=== PATIENT | female | born 1950 | race Caucasian/White ===

== ENCOUNTER 2025-04-01 07:59 | Outpatient (AMB) | payer MEDICARE, OTHER, SELFPAY ==
--- OUTSIDE RECORDS SUMMARY | 2024-11-27 10:01 | XMS_ITS ---
Author Organization [facility] Address [address] [place] [address] Care Team Providers Care Case Finisher Name Role Phone DAVID ALVARADO Primary Care Provider REASON FOR VISIT verbal orders requested Encounters Encounter Location Date Provider Diagnosis [address] [address] 11/27/2024 DAVID ALVARADO PLAN OF TREATMENT Next Appt Details Provider Name:DAVID ALVARADO , 04/01/2025 10:40:00 AM, [address] [place] [address], [phone], Provider Name:DAVID ALVARADO , 08/23/2025 09:20:00 AM, [address] [place] [address], [phone],
--- OUTSIDE RECORDS SUMMARY | 2024-12-29 09:23 | XMS_ITS ---
Author Organization [facility] Address [address] [place] [address] Care Team Providers Care Mine Development Engineer Name Role Phone DAVID ALVARADO Primary Care Provider [phone] REASON FOR VISIT PT Update Encounters Encounter Location Date Provider Diagnosis [address] [address] 12/29/2024 DAVID ALVARADO PLAN OF TREATMENT Next Appt Details Provider Name:DAVID ALVARADO , 04/01/2025 10:40:00 AM, [address] [place] [address], [phone], Provider Name:DAVID ALVARADO , 08/23/2025 09:20:00 AM, [address] [place] [address], [phone],
--- OUTSIDE RECORDS SUMMARY | 2025-01-05 06:00 | XMS_ITS ---
Author Organization [facility] Address [address] [place] [address] Care Team Providers Care Field Assembly Supervisor Name Role Phone DAVID ALVARADO Primary Care Provider ALLERGIES Allergen (clinical drug ingredient) Drug/Non Drug Allergy documented on EMR Reaction Allergy Type Onset Date Status Medicinal quinolone and acting as antibacterial agent (FN) QUINALONE (uncoded) Unknown Allergy Active amoxicillin Amoxicillin Unknown Drug Allergy Act daisy Ciprofloxacin Unknown Drug Allergy Act daisy EPINEPHrine Unknown Drug Allergy Activ e erythromycin Erythromycin stomach upset Drug Allergy Active hydroxychloroquine Plaquenil rash Drug Allergy Active omeprazole PriLOSEC Unknown Drug Allergy Active aspirin Aspirin Unknown Drug Allergy Active codeine Codeine rash Drug Allergy Active tramadol traMADol extreme nausea Drug Allergy Active REASON FOR VISIT Back pain MEDICATIONS Medication SIG (Take, Route, Frequency, Duration) Notes Start Date End Date Status Amitriptyline HCl 10 MG 1 tablet at bedt ledy Orally Once a day Active Almotriptan Malate 12.5 MG 1 tablet at o nset of headache may repeat after 2 hours if headache persists as needed Orally Once a day as needed Active Vitamin D3 50 MCG (1999 UT) 1 capsule Or ally Once a day for 30 day(s) Active Sinus Relief - as directed Sublingu al as needed Active Tylenol 325 MG 1 tablet as needed Orally every 6 hrs Active predniSONE 10 MG 1 tab(s) Orally Once a day 09/13/2022 Active Vitamin B-12 1000 MCG 1 tablet Orally On ce a day Active SOCIAL HISTORY Tobacco Use: Social History Observation Description Date Details (start date - stop date) Never Smoker NA - NA Sex Assigned At : Social History Observation Description Sex Assigned At Unknown Smoking Question Answer Notes Are you a: never smoker Section Notes: pt never smoke VITAL SIGNS Height 61 in 01/05/2025 Weight 135.2 lbs 01/05/2025 Blood pressure systolic 130 mm Hg 01/06/20 25 Blood pressure diastolic 82 mm Hg 025 BMI 25.54 kg/m2 01/05/2025 Encounters Encounter Location Date Provider Diagnosis [address] [address] 01/05/2025 DAVID MACIELSON Bilateral low back pain without sciatica, unspecified chronicity M54.50 and Mid back pain M54.9 ASSESSMENTS Encounter Date Diagnosis Assessment Notes Treatment Notes Treatment Clinical Notes Section Notes 01/05/2025 Bilateral low back pain without sciatica, unspecified chronicity (ICD-10 - M54.50) X-rays ordered. Tylenol 2 tabs every 8 hours as needed. Ice and heat as discussed. Further treatment and/or evaluation based on test results. Continue with PT as scheduled. Return here as needed. 01/05/2025 Mid back pain (ICD-10 - M54.9) See bilateral lower back pain plan PLAN OF TREATMENT Treatment Notes Assessment Notes Bilateral low back pain with out sciatica, unspecified chronicity X-rays ordered. Tylenol 2 tabs every 8 hours as needed. Ice and heat as discussed. Further treatment and/or evaluation based on test results. Continue with PT as scheduled. Return here as needed. Mid back pain See bilateral lower back pain plan Pending Test Test Name Order Date XR Thoracic Spine 4 views 01/05/2025 Next Appt Details Follow Up: X-ray ordered and faxed to [facility] please give copy of order. Symptomatic care as discussed. Further treatment based on test results. Follow- up if no improvement in 4 weeks, or as indicated by imaging., Reason: Provider Name:DAVID ALVARADO , 04/01/2025 10:40:00 AM, [address] [place] [address], [phone], Provider Name:DAVID ALVARADO , 08/23/2025 09:20:00 AM, [address] [place] [address], [phone], Progress Notes * Examination Category Sub-Category Detail Notes Category Not es General Examination Neck: supple, no l ymphadenopathy, normal ROM of C spine, non-tender Heart: RRR, no murmurs, cli cks or rubs, normal S1S2 Lungs: clear to auscultatio n Abdomen: soft, non tender/non distended Extremities: normal ROM, no clubb ing , cyanosis, or edema General Appearance no apparent distress , pleasant Skin: normal, no rash Neuro alert and oriented x 3, CN 2-12 intact, motor 5/5 bilaterally proximally and distally in all 4 extremities, DTRs 1-2+ in all 4 exremities, sensation light touch intact Back: Patient with upper t horacic spine with some kyphosis. Mild tenderness with palpation in the mid to lower thoracic spine without any obvious bony drop-offs or deformity. Pain also in the lower lumbar spine in the midline and just lateral to the spine on both sides without any bony deformity or drop-off noted. No tenderness over the buttocks or sciatic notches. No tenderness over the SI joints. Negative straight leg raise. History and Physical Notes * HPI (History of Present Illness) Category Sub-Category Detail Notes Category Not es General Patient here fo r evaluation of continuing back pain. Patient had fallen on vacation around November 09, 2024 and then had lifted a heavy object on November 20 exacerbating her back pain. Was seen at the time of her fall at a local facility and noted jaw fracture but no other fractures noted but no imaging of her back was done. She was seen by Dr. Kong here in the office for follow-up. Has been getting physical therapy at home for the last few weeks and therapist wanted her to be rechecked here because she did not feel she was progressing. Patient continues to complain of pain in her lower thoracic and lumbar spine that worsens with movement, twisting, bending, prolonged standing, prolonged sitting. Feels best when not moving or lying down. She has been doing Tylenol and some ice at times. No radiation of the pain into her extremities. No numbness or tingling in the extremities. No incontinence. Denies any chest pain or shortness of breath or difficulty breathing. She is seeing oral surgery for her jaw fracture and that is slowly improving. Surgery was not indicated/recommended per patient's report.
--- OUTSIDE RECORDS SUMMARY | 2025-01-05 09:48 | XMS_ITS ---
Author Organization [facility] Address [address] [place] [address] Care Team Providers Care Community Reinvestment Act Officer Name Role Phone DAVID ALVARADO Primary Care Provider [phone] REASON FOR VISIT Pt there now/ Rewrite Order Encounters Encounter Location Date Provider Diagnosis [address] [address] 01/05/2025 DAVID ALVARADO Midline thoracic dawood k pain, unspecified chronicity M54.6 ASSESSMENTS Encounter Date Diagnosis Assessment Notes Treatment Notes Treatment Clinical Notes Section Notes 01/05/2025 Midline thoracic back pain, unspecified chronicity (ICD-10 - M54.6) PLAN OF TREATMENT Next Appt Details Provider Name:DAVID ALVARADO , 04/01/2025 10:40:00 AM, [address] [place] [address], [phone], Provider Name:DAVID ALVARADO , 08/23/2025 09:20:00 AM, [address] [place] [address], [phone],
--- OUTSIDE RECORDS SUMMARY | 2025-01-11 09:43 | XMS_ITS ---
Author Organization [facility] Address [address] [place] [address] Care Team Providers Care Paver Name Role Phone DAVID ALVARADO Primary Care Provider REASON FOR REFERRAL Reason URGENT Referral to [facility] for thoracic and lumbar back pain unresponsive to PT Diagnosis 1 Thoracic back pain, unspecified back pain laterality, unspecified chronicity (M54.6) Diagnosis 2 Lumbar back pain (M5 4.50) Diagnosis 3 Lupus erythematosus (L93.0) Diagnosis 4 Unspecified osteoart hritis, unspecified site (M19.90) Referral Organization [facility] Referring Provider First Name DAVID Referring Provider Last Name JENNY Referring Provider Speciality Internal M edicine Referred Provider Specialty Physiatry General Notes DAVID ALVARADO 01/12 03:29:39 PM > [facility] [address] [place] [address]. Patient with increased thoracic back pain and lumbar back pain which has been waxing and waning with difficulty picking up things, bending. X-ray of T-spine showed age-indeterminate thoracic spine compression deformities and mild multifocal degenerative disc endplate spurring and disc space narrowing as well as mild left convex curvature of the lumbar spine. Lumbar spine films showed moderate multifocal degenerative disc endplate spurring and disc space narrowing. No acute fractures or changes noted. Patient with history of arthritis, lupus and osteoporosis. Evaluate for injection and/or further evaluation/treatment/imaging., Antoinette HILTON MA 01/13/2025 09:02:54 AM > Referral and xray report faxed , YOBANIShoshana P Admin 03/05/2025 02:23:17 PM > no referral required>encounter closed Clinical Notes Antoinette HILTON NATALIE 09:00:40 AM > P) [phone], Antoinette HILTON NATALIE 02/17/2025 03:55:32 PM > see incoming docs pt was seen 02/01/25 Referral Priority Urgent Referral Appointment Date 02/01/2025 REASON FOR VISIT x ray review and further recommendations MEDICATIONS Medication SIG (Take, Route, Fr equency, Duration) Notes Start Date End Date Status predniSONE 10 MG 5 tablets at the [facility] e time in the morning for 3 days, then 4 tablets for 3 days, then 3 tablets for 3 days, then 2 tablets for 3 days. Then resume regular 10 mg daily dose Orally Once a day 01/12/2025 Active Encounters Encounter Location Date Provider Diagnosis [address] [address] 01/11/2025 DAVID ALVARADO Thoracic back pain, unspecified back pain laterality, unspecified chronicity M54.6 and Lumbar back pain M54.50 ASSESSMENTS Encounter Date Diagnosis Assessment Notes Treatment Notes Treatment Clinical Notes Section Notes 01/11/2025 Thoracic back pain, unspecified back pain laterality, unspecified chronicity (ICD-10 - M54.6) 01/11/2025 Lumbar back pain (ICD-10 - M54.50) PLAN OF TREATMENT Medication Medication Name Sig Start Date Stop Date Notes predniSONE 10 MG 5 tablets at the [facility] e time in the morning for 3 days, then 4 tablets for 3 days, then 3 tablets for 3 days, then 2 tablets for 3 days. Then resume regular 10 mg daily dose Orally Once a day 01/12/2025 Referrals Referral Date Details 02/01/2025 02/01/2025, URGENT R eferral to physiatry for thoracic and lumbar back pain unresponsive to PT Next Appt Details Provider Name:DAVID ALVARADO , 04/01/2025 10:40:00 AM, [address] [place] [address], [phone], Provider Name:DAVID ALVARADO , 08/23/2025 09:20:00 AM, [address] [place], [phone], Consultation Request Notes Referral Date Referring Provider Referred Provider Not es 01/12/2025 DAVID ALVARADO , URGENT Refer ral to physiatry for thoracic and lumbar back pain unresponsive to PT
--- OUTSIDE RECORDS SUMMARY | 2025-01-18 06:49 | XMS_ITS ---
Author Organization [facility] Address [address] [place] [address] Care Team Providers Care Cd Technician Name Role Phone DAVID ALVARADO Primary Care Provider [phone] REASON FOR VISIT Urinary infection Encounters Encounter Location Date Provider Diagnosis [address] [address] 01/18/2025 DAVID ALVARADO Dysuria R30.0 ASSESSMENTS Encounter Date Diagnosis Assessment Notes Treatment Notes Treatment Clinical Notes Section Notes 01/18/2025 Dysuria (ICD-10 - R30.0) PLAN OF TREATMENT Next Appt Details Provider Name:DAVID ALVARADO , 04/01/2025 10:40:00 AM, [address] [place] [address], [phone], Provider Name:DAVID ALVARADO , 08/23/2025 09:20:00 AM, [address] [place] [address], [phone],
--- OUTSIDE RECORDS SUMMARY | 2025-01-21 08:43 | XMS_ITS ---
Author Organization [facility] Address [address] [place] [address] Care Team Providers Care School Vocational Educator Name Role Phone DAVID ALVARADO Primary Care Provider [phone] REASON FOR VISIT Lab results for urine culture MEDICATIONS Medication SIG (Take, Route, Frequency, Duration) Notes Start Date End Date Status Nitrofurantoin Monohyd Macro 100 MG 1 capsule with food Orally every 12 hrs for 5 day(s) 01/21/2025 Active Encounters Encounter Location Date Provider Diagnosis [address] [address] 01/21/2025 DAVID ALVARADO PLAN OF TREATMENT Medication Medication Name Sig Start Date Stop Date Notes Nitrofurantoin Monohyd Macro 100 MG 1 capsule with food Orally every 12 hrs for 5 day(s) 01/21/2025 Next Appt Details Provider Name:DAVID ALVARADO , 04/01/2025 10:40:00 AM, [address] [place] [address], [phone], Provider Name:DAVID ALVARADO , 08/23/2025 09:20:00 AM, [address] [place] [address], [phone],
--- OUTSIDE RECORDS SUMMARY | 2025-01-21 14:52 | XMS_ITS ---
Author Organization [facility] Address [address] [place] [address] Care Team Providers Care Claims Specialist Name Role Phone DAVID ALVARADO Primary Care Provider REASON FOR VISIT (2) RE:Lab results for urine culture MEDICATIONS Medication SIG (Take, Route, Frequency, Duration) Notes Start Date End Date Status Sulfamethoxazole-Trimethop rim 800-160 MG 1 tablet Orally BID for 5 day(s) 2025 Active Encounters Encounter Location Date Provider Diagnosis [address] [address] 01/21/2025 DAVID ALVARADO PLAN OF TREATMENT Medication Medication Name Sig Start Date Stop Date Notes Sulfamethoxazole-Trimethopri m 800-160 MG 1 tablet Orally BID for 5 day(s) 2025 Next Appt Details Provider Name:DAVID ALVARADO , 04/01/2025 10:40:00 AM, [address] [place] [address], [phone], Provider Name:DAVID ALVARADO , 08/23/2025 09:20:00 AM, [address] [place] [address], [phone],
--- OUTSIDE RECORDS SUMMARY | 2025-03-10 07:10 | XMS_ITS ---
Author Organization [facility] Address [address] [place] [address] Care Team Providers Care Registered Massage Therapist Name Role Phone DAVID ALVARADO Primary Care Provider REASON FOR VISIT back pain Encounters Encounter Location Date Provider Diagnosis [address] [address] 03/10/2025 DAVID ALVARADO PLAN OF TREATMENT Next Appt Details Provider Name:DAVID ALVARADO , 04/01/2025 10:40:00 AM, [address] [place] [address], [phone], Provider Name:DAVID ALVARADO , 08/23/2025 09:20:00 AM, [address] [place] [address], [phone],
--- OUTSIDE RECORDS SUMMARY | 2025-04-01 05:40 | XMS_ITS ---
Author Organization [facility] Address [address] [place] [address] Care Team Providers Care Sonar Technician Name Role Phone DAVID ALVARADO Primary Care Provider [phone] REASON FOR VISIT PG/back pain Encounters Encounter Location Date Provider Diagnosis [address] [address] 04/01/2025 DAVID ALVARADO PLAN OF TREATMENT Next Appt Details Provider Name:DAVID ALVARADO , 04/01/2025 10:40:00 AM, [address] [place] [address], [phone], Provider Name:DAVID ALVARADO , 08/23/2025 09:20:00 AM, [address] [place] [address], [phone],
--- NOTE | 2025-04-01 08:01 | A.PHYSOV ---
Vital Signs 04/01/25 08:04 Height 5 ft 2 in Weight 139 lb BMI 25.4 Intake Visit Reasons: Follow up after PT Intake Note: Patient is a 75 year old female in office today for a follow up visit after physical therapy. Patient just finished physical therapy 03/30/25 and somethings are better and something are not. [employer]ated [employer] Required: No Allergies amoxicillin Allergy (Unknown, Verified 04/01/25 07:57) Unknown aspirin Allergy (Unknown, Verified 04/01/25 07:57) Unknown ciprofloxacin (From Cipro) Allergy (Unknown, Verified 04/01/25 07:57) Unknown codeine Allergy (Unknown, Verified 04/01/25 07:57) Unknown epinephrine Allergy (Unknown, Verified 04/01/25 07:57) Unknown erythromycin base Allergy (Unknown, Verified 04/01/25 07:57) Unknown hydroxychloroquine (From Plaquenil) Allergy (Unknown, Verified 04/01/25 07:57) Unknown omeprazole (From Prilosec) Allergy (Unknown, Verified 04/01/25 07:57) Unknown Quinolones Allergy (Unknown, Verified 04/01/25 07:57) Unknown tramadol Allergy (Unknown, Verified 04/01/25 07:57) Unknown NSAIDS Allergy (Unknown, Uncoded 03/24/25 13:14) Unknown HPI Comments Details: History of Present Illness The patient is a 75 year old female presenting for a follow-up visit for mid and lower back pain. Her symptoms began in early October 2024 after she picked up a heavy object, at which time she developed severe pain on the right side of her lower back that propagated into her upper mid-back. An MRI of the thoracic and lumbar spine obtained on February 04, 2025, demonstrated multiple chronic compression fractures in the thoracic area and a subacute compression deformity in the superior endplate of L5. She was referred to physical therapy, which she feels provided only temporary relief. Currently, she reports feeling better but not to the degree she expected. She describes the lower back pain as constant and states she also has pain on the left side and in her upper back with significant activity. She notes additional pain in the front on her left side and denies any pain shooting down her leg. Pain Description - Onset: The patient's pain began in early October 2024 after lifting a heavy object. - Location: The pain initially started on the right side of her lower back and propagated to the upper mid-back. - Current Location: She reports constant pain in her lower back, pain on the left side, and pain in the anterior left side. - Quality: The lower back is described as sore upon palpation. - Radiation: She denies any pain shooting down her leg. - Exacerbating Factors: She experiences pain in her upper back with increased activity. - Frequency: The lower back pain is constant and never stops. - Progression: She states that she is feeling better over time, but not to the degree she expected. Results - Imaging: - Thoracic and Lumbar Sacral Spine MRIs (02/04/2025): Findings included multiple chronic compression fractures in the thoracic area and a subacute compression deformity in the superior endplate of L5. [facility] Medical History (Updated 04/01/25 @ 12:40 by Tony Mcfarland DO) Lumbar compression fracture Low back pain Thoracic spine pain Surgical History (Updated 03/24/25 @ 13:15 by Tess Ambrocio MA) Status post left foot surgery (Unknown) Social History (Updated 04/01/25 @ 07:57 by Tess Ambrocio MA) Household Members: Spouse Alcohol intake: current Alcohol intake frequency: does not drink Patient Tobacco Use Status: Never used Tobacco Use of substances other than those prescribed or required for medical reasons: No Current occupational status: retired Review of Systems Narrative Review of Systems - Musculoskeletal: Reports constant lower back pain, left-sided pain, and upper back pain with activity. - Neurological: Denies pain radiating down the leg. Physical Exam Exam Exam: Physical Exam - General: The patient was able to stand from a seated position. - Back: Upon palpation, soreness was elicited over the lower back. Lumbar extension and flexion were restricted and painful. Dural tension signs were negative. Patient ambulates without antalgia. Neurological examination was nonfocal. Tenderness with palpation throughout her thoracic paraspinal muscles. Vital Signs: BMI result Body Mass Index 25.4 Assessment & Plan Assessment & Plan (1) Thoracic spine pain: Code(s): M54.6 - Pain in thoracic spine Category: Medical (2) Low back pain: Code(s): M54.50 - Low back pain, unspecified Category: Medical Qualifiers: Back pain laterality: midline Chronicity: chronic Sciatica presence: without sciatica Qualified Code(s): M54.50 - Low back pain, unspecified; G89.29 - Other chronic pain (3) Lumbar compression fracture: Code(s): S32.000A - Wedge compression fracture of unspecified lumbar vertebra, initial encounter for closed fracture Category: Medical Qualifiers: Encounter type: subsequent encounter Fracture healing: with delayed healing Lumbar vertebra fracture level: L5 Qualified Code(s): S32.050G - Wedge compression fracture of fifth lumbar vertebra, subsequent encounter for fracture with delayed healing Plan Pain Management - Affect: The patient expresses that her back is still bothering her and she has not improved to the degree she expected. - Analgesia: Physical therapy provided temporary relief. - Activities of Daily Living: Upper back pain occurs with significant activity. - Aberrant Drug-Related Behaviors: The patient is not currently on narcotic medications and expressed she is not excited about taking drugs. Plan Patient was informed and verbally consented to the use of an ambient scribe for clinic note documentation during this visit. 1. Subacute L5 Compression Fracture The patient's localized lower back pain is attributable to the subacute L5 compression fracture identified on MRI. As this pain persists, a procedural intervention was discussed, specifically injecting cement into the L5 vertebral body (kyphoplasty). The patient has agreed to this option, and a referral will be placed for an evaluation for the procedure. The referral will be made to Pain Management at [facility]. 2. Chronic Widespread Pain The patient reports diffuse pain, including in the upper back and left flank, which makes a single procedural target for these symptoms difficult to identify. Management options were discussed, including non-narcotic medications for chronic pain such as duloxetine, which the patient was not keen on. As an alternative, a trial of turmeric supplementation (2000 mg daily) with black pepper was recommended for its anti-inflammatory effects. It was explained that this supplement may take a couple of months to show benefit. Follow-up will occur after the kyphoplasty procedure and after a trial of turmeric. Discussion Notes I reviewed the patient's January 2025 MRI findings with her, noting the multiple old, healed thoracic fractures and the still-healing subacute fracture at L5. I explained that the L5 fracture is likely the cause of her specific low back pain and that a procedure to inject cement (kyphoplasty) could be effective for this particular pain, though it would not address her widespread pain. The patient expressed interest and consented to a referral for this procedure. We discussed the referral location, and after clarifying an insurance issue, she agreed to a referral within the [facility] system. I will place the referral with the service, either Interventional Radiology or Neurosurgery, that can see her the fastest. For her other widespread aches and pains, I discussed management options. Given her hesitation to use medications like duloxetine, we discussed trying the supplement turmeric with black pepper at a dose of 2000 mg daily. I advised her it would take a couple of months to build up and see an effect. We will follow up after her procedure to reassess. Patient Instructions - I will put in a referral for you to be evaluated for a procedure to put cement in the broken bone in your lower back. - You will be contacted by the specialist's office at [facility] to schedule this evaluation. - For your other general aches and pains, you can try taking a turmeric supplement, as we discussed. - The recommended dose is 2000 mg per day. - Make sure the supplement you buy also contains black pepper, as this helps it work better. - Please be aware that it may take a couple of months of taking the supplement before you notice a difference in your pain. - We will schedule a follow-up visit after your procedure is done to see how you are doing. Orders: Referrals Pain Management Referral S32.050G - Wedge compression fracture of fifth lumbar vertebra, subsequent encounter for fracture with delayed healing Coding Level of Care Code Est Pt Level 4 (90049) Complex visit Add On G2211 Diagnoses Thoracic spine pain M54.6 Chronic midline low back pain without sciatica M54.50; G89.29 Back pain laterality: midline Chronicity: chronic Sciatica presence: without sciatica Compression fracture of L5 vertebra with delayed healing, subsequent encounter S32.050G Encounter type: subsequent encounter Fracture healing: with delayed healing Lumbar vertebra fracture level: L5
[2025-04-01 08:04] VITALS: BMI 25.4
--- OUTSIDE RECORDS SUMMARY | 2025-04-01 08:04 | XMS_ITS ---
Author Name [facility] Organization Unknown History of Medication Use Medication Directions Dispensed Refills Start Date End Date Stat us Tiotropium [place] Monohydrate (Spiriva Respimat) 2.5 MCG/ACT AERS Take 2.5 mcg by mouth daily as needed. 09/19/2022 active almotriptan (AXERT) 12.5 MG tablet Take 1 tablet (12.5 mg total) by mouth as needed for migraine. may repeat in 2 hours if needed active amitriptyline (ELAVIL) 10 MG tablet Take 1 tablet (10 mg total) by mouth every night at bedtime. active Calcium 250 MG CAPS Take 500 mg by mouth daily. active predniSONE (DELTASONE) tablet 10 mg Take by mouth every morning with breakfast. active vitamin B-12 (CYANOCOBALAMIN) 500 MCG tablet Take 2 tablets (1,000 mcg total) by mouth daily. active Allergies Allergen Reaction Severity Comment Documented Date Source Statu s ASPIRIN 12/27/2021 [facility] active QUINOLONES Retinal damage 11/10/2021 [facility] act daisy IBUPROFEN 10/02/2016 [facility] active NSAIDS Stomache 06/20/2008 [facility] active AMOXICILLIN NAUSEA AND VOMITING [facility] CODEINE RASH [facility] EPINEPHRINE NAUSEA AND VOMITING Other reaction(s): n&v [facility] OMEPRAZOLE Body numbness [facility] CARBAMAZEPINE [facility] CEFACLOR Other reaction(s): Rash/Dermatitis [facility] Problems Problem Status Onset Date Problem Type Date of Resoluti on Source Shortness of breath active 2021-11-10 ProblemAct [facility] Chronic intractable headache active 2021-11-10 ProblemAct [facility] Abnormal EKG active 2021-11-10 ProblemAct [facility] Allergies active 2021-11-10 ProblemAct [facility] Lupus active 2021-11-10 ProblemAct [facility] Encounters Encounter Type Encounter Reason Primary Diagnosis Location Date Ambulatory [facility] 11/14/19 Ambulatory [facility] [place] 12/13/2022 Ambulatory Unspecified right bundle-branch block Unspecified right bundle-branch block [facility] [place] 12/13/2022 Care Team Organization Name Specialty Phone Email [facility] 12/13/2022
--- OUTSIDE RECORDS SUMMARY | 2025-04-01 08:05 | XMS_ITS | Clinical Summary ---
Author Organization [facility] Prior to 09/26/24 Address [address] [place] [address] Care Team Providers Care Dealer Development Manager Name Role Phone Butch Veliz Primary Care Provider [phone] Allergies Active Allergy Reactions Criticality Noted Date Comments Amoxicillin Nausea And Vomiting Low 12/27/2021 Aspirin Low 12/27/2021 Carbamazepine 10/02/2016 Cefaclor 06/20/2008 Other reaction(s): Rash/Dermatitis Codeine Rash Low 11/10/2021 Epinephrine Nausea And Vomiting 11/10/2021 Other reaction(s): n&v Ibuprofen 10/02/2016 Nsaids 06/20/2008 [place] Omeprazole 11/10/2021 Body numbness Quinolones 11/10/2021 Retinal damage Medications Medication Sig Dispensed Refills Start Date End Date Status amitriptyline (ELAVIL) 10 MG tablet Take 1 tablet (10 mg total) by mouth every night at bedtime. 0 Active Calcium 250 MG CAPS Take 500 mg by mouth daily. 0 Active vitamin B-12 (CYANOCOBALAMIN) 500 MCG tablet Take 2 tablets (1,000 mcg total) by mouth daily. 0 Active almotriptan (AXERT) 12.5 MG tablet Take 1 tablet (12.5 mg total) by mouth as needed for migraine. may repeat in 2 hours if needed 0 Active predniSONE (DELTASONE) tablet 10 mg Take by mouth every morning with breakfast. 0 Active Tiotropium [place] Monohydrate (Spiriva Respimat) 2.5 MCG/ACT AERS Take 2.5 mcg by mouth daily as needed. 0 09/19/2022 Active Active Problems Problem Noted Date Diagnosed Date Lupus 11/10/2021 Chronic intractable headache 11/10/2021 Allergies 11/10/2021 Abnormal EKG 11/10/2021 Shortness of breath 11/10/2021 Social History Tobacco Use Types Packs/Day Years Used Date Smoking Tobacco: Never Passive Smoke Exposure: Never Smokeless Tobacco: Never Tobacco Cessation:Counseling Given: Not Answered Sex and Gender Information Value Date Recorded Sex Assigned at Female 11/10/2021 3:47 PM EDT Gender Identity Not on file Sexual Orientation Not on file Job Start Date Occupation Industry Not on file Not on file Not on file Last Filed Vital Signs Vital Sign Reading Time Taken Comments Blood Pressure 130/80 12/21/2022 10:53 AM EDT Pulse 76 12/21/2022 10:53 AM EDT Temperature 36.3 C (97.3 F) 12/27/2021 10:51 AM EDT Respiratory Rate - - Oxygen Saturation 99% 12/21/2022 10:53 AM EDT Inhaled Oxygen Concentration - - Weight 60.8 kg (134 lb) 12/21/2022 10:53 AM EDT Height 157.5 cm (5' 2 ) 12/21/2022 10:53 AM EDT Body Mass Index 24.51 12/21/2022 10:53 AM EDT Plan of Treatment Health Maintenance Due Date Last Done Comments Hepatitis C Screening 1950 Depression Screening 1964 Preventative Health Evaluation 01/21/1970 Colon Cancer Screening (Colonoscopy) 01/21/1997 Breast Cancer Screening (Mammogram) 01/21/2002 Shingrix-Zoster Vaccine (1 o f 2) 01/21/2002 Fall Risk Assessment 01/21/2017 Osteoporosis Screening (DEXA Scan) 01/21/2017 Pneumococcal Vaccine (1 of 1 - PCV) 01/21/2017 COVID-19 Vaccine (3 - 2024-2 6 season) 2024 08/13/2020, 07/23/2020 Influenza Vaccine (#1) 2024 DTap / Tdap / Td (2 - Td or Tdap) 07/10/2025 07/11/2015 RSV Adult > 60+ Yrs or (1 - 1-dose 75+ series) 01/21/2027 Hepatitis B Vaccines Aged Out No long er eligible based on patient's age to complete this topic RSV Ped < 20 months Aged Out No longe r eligible based on patient's age to complete this topic Care Teams Dealer Development Manager Relationship Specialty Start Date End Date Butch Veliz PA PCP - General Physician Perinatal Specialist 10/01/22
--- OUTSIDE RECORDS SUMMARY | 2025-04-01 08:06 | XMS_ITS | Clinical Summary ---
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 Name Role Phone Robel Weber MD Unavailable [phone] Chidi Maciel MD Unavailable [phone] Frederick Osorio MD Unavailable [email or web address] Reynold Sanford MD Unavailable [phone] Butch Veliz Primary Care Provider [phone] Allergies Active Allergy Reactions Criticality Noted Date Comments Amoxicillin Nausea And Vomiting,Nausea and/or Vomiting Low 06/28/2019 Aspirin Low 12/27/2021 Interaction with prednisone Cefaclor 06/20/2008 Other reaction(s): Rash/Dermatitis Codeine Rash Low 10/02/2016 Dorzolamide-Timolol Other (See Comments) 09/24/2018 Corneal sensitivity Epinephrine Nausea and/or Vomiting,Nausea And Vomiting 11/10/2021 Other reaction(s): n&v Erythromycin 10/02/2016 Motrin (Ibuprofen) 10/02/2016 Omeprazole Other (See Comments) 06/27/1994 Body numbness Penicillins 02/24/2025 Quinolones 11/10/2021 Retinal damage Tegretol (Carbamazepine) 10/02/2016 Tramadol 02/24/2025 Medications * This document contains information received from the source organization and may not represent a complete record from that organization. AMITRIPTYLINE HCL (AMITRIPTYLINE ORAL) Take 10 mg by mouth nightly at bedtime. Active Medication-Free Text as needed. natra bio allergy /sinus relief tabs Active cyanocobalamin, vitamin B-12, 500 MCG tablet Take 1,000 mcg by mouth daily. Active almotriptan (AXERT) 12.5 MG tablet Take 12.5 mg by mouth as needed. 11/15/2022 Active famotidine (PEPCID) 10 MG tablet Take 10 mg by mouth as needed. 11/15/2022 Active ipratropium (ATROVENT) 42 mcg (0.06 %) nasal spray 2 sprays by Nasal route as needed. 09/18/2023 Active predniSONE (DELTASONE) 5 MG tablet Take 2 tablets (10 mg total) by mouth daily. 180 tablet 02/05/2025 Active cholecalciferol , vitamin D3, (VITAMIN D3 ORAL) Take by mouth daily. Active Active Problems Problem Noted Date Diagnosed Date Pulmonary nodule, left 02/24/2025 Overview (02/24/2025): Patient reports follows with Dr. Vance of Pulmonology at [facility]. Evaluation 2024, with imaging. Patient felt to be stable and patient reports she was told to follow-up in a couple years. Assessment & Plan (02/24/2025 3:10 PM EDT): -- Patient follows with a [facility] Administrator and patient reports no further intervention was needed. Anticipated pulmonary follow-up, by patient report, within 2 years. Primary osteoarthritis involving multiple joints 07/12/2023 Assessment & Plan (10/14/2023 4:25 PM EDT): Osteoarthritis in multiple areas with no swelling. She can take Tylenol 650 mg as needed. Assessment & Plan (07/12/2023 11:13 AM EDT): Osteoarthritis in a few joints with stiffness. She is also physically deconditioned which is contributing to her overall lack of stamina. I have asked her to try and get some daily physical activity to improve her stamina. She can take Tylenol 650 mg as needed. Vitamin D deficiency, unspecified 01/09/2023 Assessment & Plan (01/09/2023 12:05 PM EDT): Will check her vitamin D level and supplement if needed. Trigeminal neuralgia of right side of face 01/09 Assessment & Plan (07/12/2023 11:14 AM EDT): Chronic trigeminal neuralgia on the right side of her face fairly stable on Elavil. Assessment & Plan (01/09/2023 12:07 PM EDT): Right-sided trigeminal neuralgia stable on amitriptyline at night. Physical deconditioning 01/09/2023 Assessment & Plan (01/09/2023 12:13 PM EDT): I believe her shortness of breath with activity and the inability to be more active is due to physical deconditioning. She has been essentially homebound during the COVID pandemic and has lost her physical stamina. I suggested she try and be more active on a daily basis if she can, in order to build up her stamina. Meibomianitis 10/02/2016 Allergic conjunctivitis of both eyes 10/02/2016 Systemic lupus erythematosus 10/02/2016 Assessment & Plan (02/24/2025 3:10 PM EDT): -- Continue prednisone 10 mg/day----well-documented that patient could not tolerate lower dose 9 mg trial spring 2024, too much increase of fatigue --Monitoring laboratory ordered for lupus markers Assessment & Plan (10/14/2023 4:24 PM EDT): SLE appears stable. She can lower the dose of prednisone by 1 mg every 8 weeks. I sent in prescription for 5 mg and 1 mg tablets. Sent her for some baseline labs today. Assessment & Plan (07/12/2023 11:13 AM EDT): Systemic lupus appears stable with no active symptoms. She is currently on 10 mg of prednisone and has a very difficult time weaning off. I have asked her to remain on 10 mg until the weather warms up. She can then once again try to wean down prednisone very slowly. Continue with daily calcium and vitamin D through foods and supplements. She should also make sure she is eating enough protein in her diet and drinking at least 40 ounces of water. Sent her for some baseline labs today. Assessment & Plan (01/09/2023 12:07 PM EDT): Lupus erythematosus appears to be stable with no active symptoms on 10 mg of prednisone daily. She has a very difficult time weaning off prednisone. She does not want to change the dose given her upcoming dental issues as well as cataract surgery. Suggested she makes sure she gets daily calcium and vitamin D through supplements and foods. 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 Encounters Date Type Department Care Team Description 02/24/2025 2:54 PM EDT - 02/24/2025 11:59 PM EDT Hospital Encounter [facility] [address] [place] [address] Meme Velázquez DO Discharge Disposition: Home or Self Care 02/24/2025 2:00 PM EDT Office Visit [facility] [address] [place] [address] [place] [address] Meme Velázquez DO Systemic lupus erythematosus, unspecified SLE type, unspecified organ involvement status (Primary Dx); 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 02/05/2025 Refill [facility] [address] [place] [address] [place] [address] Meme Velázquez DO Medication Refill from Last 3 Months Family History Medical History Relation Comments Atrial fibrillation Brother 1 Heart disease Maternal Grandmother Relation Status Comments Brother 1 Alive Brother 2 Alive Father Maternal Grandmother Mother Social History Tobacco Use Types Packs/Day Years Used Date Smoking Tobacco: Never Smokeless Tobacco: Never Tobacco Cessation:Counseling Given: Not Answered Alcohol Use Standard Drinks/Week Comments Not Currently 0 (1 standard drink = 0.6 oz pur e alcohol) Education Answer Date Recorded Are you interested in more education? Not on maxwell e 08/23/2022 Are you concerned about learning? Not on file 08/23/2022 No 08/23/2022 No 08/23/2022 Digital Access Answer Date Recorded No 09/24/2022 No 09/24/2022 Reliable internet access at home? Not on file 09/24/2022 Device with a working camera? Not on file Comments No Sex and Gender Information Value Date Recorded Sex Assigned at Not on file Legal Sex Female 7:35 PM EST Gender Identity Not on file Sexual Orientation Not on file Last Filed Vital Signs Vital Sign Reading Time Taken Comments Blood Pressure 142/78 02/24/2025 2:13 PM EDT Pulse 82 02/24/2025 2:13 PM EDT Temperature 36.3 C (97.3 F) 07/24/2024 10:28 AM EDT Respiratory Rate 16 09/18/2018 12:38 PM EDT Oxygen Saturation 100% 02/24/2025 2:13 PM EDT Inhaled Oxygen Concentration - - Weight 64.4 kg (142 lb) 02/24/2025 2:13 PM EDT w ith shoes Height 157.5 cm (5' 2.01 ) 02/24/2025 2:13 PM ED T Body Mass Index 25.97 02/24/2025 2:13 PM EDT Plan of Treatment Upcoming Encounters Date Type Department Care Team (Late st Contact Info) Description 05/01/2025 10:15 AM EST Appointment [facility], Bone Density - [address] [address] Ana Peralta MD [address] [place] [address] 05/24/2025 10:30 AM EST Office Visit [facility] Rheumatology [address] [place] [address] Meme Velázquez, [address] [facility], [address] [place] [address] [email or web address] Due Date Last Done Comments Adult Td,Tdap Booster 1952 LIPID PANEL 1952 DEPRESSION SCREENING 1964 HEPATITIS C SCREENING 01/21/1970 MAMMOGRAM 1992 COLOGUARD 01/21/1997 COLONOSCOPY 01/21/1997 COLORECTAL CANCER SCREENING 01/21/1997 FIT TEST 01/21/1997 FOBT 01/21/1997 SIGMOIDOSCOPY 01/21/1997 VIRTUAL COLONOSCOPY 01/21/1997 PNEUMOCOCCAL VACCINES (50+ years) (1 of 1 - PCV) 01/21/2002 ZOSTER VACCINES (1 of 2) 01/21/2002 OSTEOPOROSIS SCREENING INITIAL (ONE-TIME) 01/21/2017 COVID-19 VACCINE (2024- season) 2025 02/11/2025, 01/17/2024, 02/01/2023, Additional history exists RSV VACCINE (1 - 1-dose 75+ series) 01/21/2027 INFLUENZA VACCINE Completed 02/05/2025, , 02/28/2023, Additional history exists SMOKING STATUS SCREENING (Once After 26 Yrs) Completed 02/24/2025 HEPATITIS A VACCINES Aged Out No long er eligible based on patient's age to complete this topic HIB VACCINES Aged Out No longer eligi ble based on patient's age to complete this topic MENINGOCOCCAL VACCINES (ACWY) Aged Out No longer eligible based on patient's age to complete this topic MENINGOCOCCAL VACCINES (B) Aged Out N o longer eligible based on patient's age to complete this topic Medical Devices Not on file Procedures Procedure Name Priority Date/Time Associated Diagnosis Comments SEDIMENTATION RATE (ESR) Routine 025 3:00 PM EDT Systemic lupus erythematosus, unspecified SLE type, unspecified organ involvement status 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 CREATININE WITH ESTIMATED GLOMERULAR FILTRATION RATE (EGFR) Routine 02/24/2025 3:00 PM EDT Systemic lupus erythematosus, unspecified SLE type, unspecified organ involvement status 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 BUN Routine 02/24/2025 3:00 PM EDT Systemic lupus erythematosus, unspecified SLE type, unspecified organ involvement status [facility] (current) use of systemic steroids ALANINE AMINOTRANSFERASE (ALT) Routine 02/24/2025 3:00 PM EDT Systemic lupus erythematosus, unspecified SLE type, unspecified organ involvement status [facility] (current) use of systemic steroids ASPARTATE AMINOTRANSFERASE (AST) Routine 02/24/2025 3:00 PM EDT Systemic lupus erythematosus, unspecified SLE type, unspecified organ involvement status [facility] (current) use of systemic steroids CBC AND DIFFERENTIAL Routine 02/24/2025 3:00 PM EDT Systemic lupus erythematosus, unspecified SLE type, unspecified organ involvement status [facility] (current) use of systemic steroids DOUBLE STRANDED DNA ANTIBODIES Routine 02/24/2025 3:00 PM EDT Systemic lupus erythematosus, unspecified SLE type, unspecified organ involvement status [facility] (current) use of systemic steroids COMPLEMENT C3 Routine 02/24/2025 3:00 PM EDT Systemic lupus erythematosus, unspecified SLE type, unspecified organ involvement status 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 Blood 02/24/2025 3:00 PM EDT 02/24/2025 3:10 PM EDT us Meme Velázquez DO LAB BLOOD BKR ORDERABLES F inal Result [facility] [address] [place] [address] * Double stranded DNA antibodies (02/24/2025 3:00 PM EDT) ANTI DSDNA ANTIBODY Negative at 1:10 [facility] Comment: Performing Pathologist, Gabby De La Rosa M.D., Ph.D. [id number] Normal: Negative at 1:10 To interpret a negative test for anti-muscogee or double stranded DNA antibodies in a patient suspected of having systemic lupus erythematosus, the following limitation should be noted. Anti-double stranded DNA antibodies are usually detected in SLE patients with active disease, especially in those with active renal disease. Anti-DNA antibodies are usually not detected in SLE patients with spontaneous or drug-induced remissions. Blood 02/24/2025 3:00 PM EDT 02/24/2025 3:10 PM EDT Meme Velázquez LAB BLOOD BKR ORDERABLES F inal Result Performing Organization Address City/[facility]/ZIP Co de Phone Number [address] [address] * Sedimentation rate (ESR) (02/24/2025 3:00 PM EDT) Pathologist [facility] ESR 13 0 - 30 mm/h [facility] Blood 02/24/2025 3:00 PM EDT 02/24/2025 3:10 PM EDT Meme Velázquez DO LAB BLOOD BKR ORDERABLES F inal Result Performing Organization Address City/[facility]/ZIP Co de Phone Number [facility] [address] [place] [address] * (ABNORMAL) CBC and differential (02/24/2025 3:00 PM EDT) Pathologist [facility] WBC 8.08 4.00 - 11.00 K/uL [facility] RBC 4.13 4.00 - 5.20 M/uL [facility] HGB 13.9 12.0 - 16.0 g/dL [facility] HCT 42.2 36.0 - 46.0 % [facility] PLT 262 150 - 450 K/uL [facility] MCV 102.2(H) 80.0 - 100.0 fL [facility] MCH 33.7(H) 27.0 - 31.0 pg [facility] MCHC 32.9 32.0 - 36.0 g/dL [facility] RDW 13.4 11.5 - 14.5 % [facility] MPV 11.6 8.4 - 12.0 fL [facility] NRBC 0.00 0.00 /100 WBCs [facility] ABSOLUTE NRBC 0.00 0.00 K/uL [facility] DIFF METHOD Auto [facility] NEUTS 88.5(H) 48.0 - 76.0 % [facility] LYMPHS 8.5(L) 18.0 - 41.0 % [facility] MONOS 2.2(L) 4.0 - 11.0 % [facility] EOS 0.0 0.0 - 5.0 % [facility] BASOS 0.2 0.0 - 1.5 % [facility] Granulocytes, immature (%) 0.6 0.0 - 0.9 % [facility] ABSOLUTE NEUTS 7.14 1.92 - 7.60 K/uL [facility] ABSOLUTE LYMPHS 0.69(L) 0.72 - 4.10 K/uL [facility] ABSOLUTE MONOS 0.18 0.16 - 1.10 K/uL [facility] ABSOLUTE EOS 0.00 0.00 - 0.50 K/uL [facility] ABSOLUTE BASOS 0.02 0.00 - 0.15 K/uL [facility] Granulocytes, immature 0.05 0.00 - 0.09 K/uL [facility] Blood 02/24/2025 3:00 PM EDT 02/24/2025 3:10 PM EDT us Meme Velázquez DO LAB BLOOD BKR ORDERABLES F inal Result [facility] [address] [place] [address] * Complement C3 (02/24/2025 3:00 PM EDT) C3 83 81 - 157 mg/dl [facility] Blood 02/24/2025 3:00 PM EDT 02/24/2025 3:10 PM EDT us Meme Velázquez DO LAB BLOOD BKR ORDERABLES F inal Result Performing Organization Address City/[facility] Co de Phone Number [address] [address] * Complement C4 (02/24/2025 3:00 PM EDT) C4 15 12 - 39 mg/dL [facility] Blood 02/24/2025 3:00 PM EDT 02/24/2025 3:10 PM EDT us Meme Velázquez DO LAB BLOOD BKR ORDERABLES F inal Result Performing Organization Address City/[facility] Co de Phone Number [address] [address] * (ABNORMAL) BUN (02/24/2025 3:00 PM EDT) BUN 20(H) 6 - 19 mg/dL [facility] Blood 02/24/2025 3:00 PM EDT 02/24/2025 3:10 PM EDT us Meme Velázquez DO LAB BLOOD BKR ORDERABLES F inal Result Performing Organization Address City/[facility] Co de Phone Number [facility] [address] [place] [address] * Alanine aminotransferase (ALT) (02/24/2025 3:00 PM EDT) ALT 25 0 - 40 U/L [facility] Blood 02/24/2025 3:00 PM EDT 02/24/2025 3:10 PM EDT us Meme Velázquez DO LAB BLOOD BKR ORDERABLES F inal Result [address] [address] * Aspartate aminotransferase (AST) (02/24/2025 3:00 PM EDT) AST 30 0 - 37 U/L [facility] Blood 02/24/2025 3:00 PM EDT 02/24/2025 3:10 PM EDT Meme eFnton Eber DO LAB BLOOD BKR ORDERABLES F inal Result Performing Organization Address [facility]/ZIP Co de Phone Number [address] [address] * Outside MR Imaging Report Only (02/04/2025 4:13 PM EDT) Historical Provider MD KENNEDY MR Final Res ult from Last 3 Months Insurance MEDICARE PART A & B [facility] MEDICARE SUPPLEMENT Member Subscriber Plan / Payer (Ef fective 2017-Present) Name:Paige Lopez Relation to Subscriber:Self Name:John Paige A Payer ID:[id number] ([facility]) Type:Indemnity Address: [address] [place] [address] MEDICARE PART A & B [employer] MEDICARE SUPPLEMENT Member Subscriber Plan / Payer (Ef fective 2017-Present) Name:Paige Lopez Relation to Subscriber:Self Name:Paige Lopez Payer ID:[id number] ([facility]) Type:Indemnity Address: [address] [place] [address] MEDICARE PART A & B [employer] MEDICARE SUPPLEMENT MEDICARE PART A & B [facility] EXTENSION MEDICARE SUPPLEMENT MEDICARE PART A & [facility] SUPPLEMENT [facility] PART A & [facility] MED[facility] SUPPLEMENT MEDICARE PART A & B [employer] MEDICARE SUPPLEMENT Member Subscriber Plan / Payer ( fective 2017-Present) Name:Paige Lopez Relation to Subscriber:Self Name:Paige Lopez Payer ID:[id number] ([facility]) Type:Indemnity Address: [address] [address] MEDICARE PART A & B [employer]TENSION MEDICARE SUPPLEMENT MEDICARE PART A & B [facility] EXTENSION MEDICARE SUPPLEMENT Care Teams Cattle 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 Relationship Specialty Start Date End Date Butch Veliz PA [address] [place] [address] PCP - General Physician Credit Assistant 11/14/22 Robel Weber MD [address] [place] [address] Ophthalmology 10/02/16 Chidi Maciel MD [address] [place] [address] Ophthalmology 10/02/16 Frederick Osorio MD [address] [place] [address] [email or web address] Rheumatology 10/02/16 Reynold Sanford MD [address] [facility] [address] [place] [address] [email or web address] Historical [facility] Provider 02/12/17 Additional Source Comments The information contained in this document represents components of the legal health record. It is not the complete legal health record.[facility]
--- OUTSIDE RECORDS SUMMARY | 2025-04-01 08:06 | XMS_ITS | Patient Health Record ---
Author Organization [facility] Address [address] [place] [address] Care Team Providers Care C Web Developer Name Role Phone ALVARADODAVID BUI Primary Care Provider MICHAEL KONG Unavailable [phone] ALLERGIES Allergen (clinical drug ingredient) Drug/Non Drug [...] extreme nausea Drug Allergy Active REASON FOR REFERRAL Reason Assess and treat Diagnosis 1 Closed fracture of l eft side of mandible, unspecified mandibular site, initial encounter (S02.609A) Referral Organization [facility] Referring Provider First Name MICHAEL Referring Provider Last Name BEBA Referring Provider Speciality Internal M edicine Referred Provider Specialty Maxillofacia l Surgery General Notes MICHAEL KONG 02:49:17 PM > patient has already called [facility] maxillofacial surgeons please send this with a copy of the ED attendance summary and this note.YOBANI Alex F CMA 11/13/2024 09:07:09 AM > [facility] ([facility]) , [address] [place] [address], , F# [phone] -*OV note, imaging report, urgent care note enclosed; *Requesting urgent appt for pt please. Thank you, Riaz [facility] 11/13/2024 09:11:03 AM > Fwd> Shoshana, if insrance referral is needed. Thank you., YOBANIShoshana P Admin 11/16/2024 07:40:00 AM > no referral required with pt's insurance plan>faxed to [phone]>encounter closed Referral Priority Urgent Referral Appointment Date 11/13/2024 Reason asses and treat for PT Diagnosis 1 Acute right-sided lo w back pain without sciatica (M54.50) Referral Organization [facility] jacinto Referring Provider First Name MICHAEL Referring Provider Last Name BEBA Referring Provider Speciality Internal edicine Referred Provider Specialty Physical [facility] General Notes MICHAEL KONG 02:51:03 PM > Home care physical therapy through [facility] if they have room what for this patient, Riaz HILTON [facility] 11/11/2024 04:28:49 PM > Rachidesperanza # [phone] - OV notes enclosed; *requesting vna PT services for pt please. Thank you. Referral Priority Urgent Referral Organization [facility] j[facility]into Referring Provider First Name MICHAEL Referring Provider Last Name BEBA Referring Provider Speciality Internal edicine Referred Organization [facility] Referred Provider Specialty Physical [facility] General Notes YOBANIShoshana P Admin 11:49:32 AM > , Haydee Hare/[phone], patient was referred by Dr. Kong and they will be starting physical therapy with patient tomorrow 11/19/2024., Shoshana HILTON P Admin 03/04/2025 09:34:35 AM > nrr>encounter closed Referral Priority Routine Referral Appointment Date 11/19/2024 Reason Patient requesting e valuation by [facility] for services Diagnosis 1 Acute right-sided lo w back pain without sciatica (M54.50) Referral Organization [facility] [place] Referring Provider First Name MICHAEL Referring Provider Last Name BEBA Referring Provider Speciality Internal edicine Referred Provider Specialty Other Medica l [facility] General Notes DAVID ALVARADO 11/27 04:01:19 PM > patient needs PT and OT services and also needs assistance with getting around outside of the home. Patient requesting [facility] for evaluation., Antoinette HILTON NATALIE 11/29/2024 08:43:05 PM > Referral faxed to F) [phone] (P) [phone], Alicia HILTONie Everton NATALIE 12/17/2024 09:17:42 AM > pt was seen by [facility] see incoming docs and telephone encounters , Shoshana HILTON P Admin 03/04/2025 09:35:16 AM > nrr>encounter closed Referral Priority Routine Referral Appointment Date 11/19/2024 Reason URGENT Referral to [facility] for thoracic and lumbar back pain unresponsive to PT Diagnosis 1 Thoracic back pain, unspecified back pain laterality, unspecified chronicity (M54.6) Diagnosis 2 Lumbar back pain (M5 4.50) Diagnosis 3 Lupus erythematosus (L93.0) Diagnosis 4 Unspecified osteoart hritis, unspecified site (M19.90) Referral Organization [facility] Referring Provider First Name DAVID Referring Provider Last Name JENNY Referring Provider Speciality Internal M edicine Referred Provider Specialty Physiatry General Notes DAVID ALVARADO 01/12 03:29:39 PM > URGENT referral to Dr. Tony Mcfarland at [address] in [place]. Patient with increased thoracic back pain and [...] > Referral and xray report faxed , Shoshana HILTON P Admin 03/05/2025 02:23:17 PM > no referral required>encounter closed Clinical Notes Antoinette HILTON [place] 09:00:40 AM > (K) [phone] (F)[phone], Antoinette HILTON [place] 02/17/2025 03:55:32 PM > see incoming docs pt was seen 02/01/25 Referral Priority Urgent Referral Appointment Date 02/01/2025 MEDICATIONS Medication SIG (Take, Route, Frequency, Duration) Notes Start Date End Date Status Nitrofurantoin Monohyd Macro 100 MG 1 capsule with food Orally every 12 hrs for 5 day(s) 01/21/2025 Active Sulfamethoxazole-Trimethopri m 800-160 MG 1 tablet Orally BID for 5 day(s) 2025 Active predniSONE 10 MG 1 tab(s) Orally Once a day 09/13/2022 Active Amitriptyline HCl 10 MG 1 tablet at bedt ledy Orally Once a day Active Almotriptan Malate 12.5 MG 1 tablet at o nset of headache may repeat after 2 hours if headache persists as needed Orally Once a day as needed Active Vitamin B-12 1000 MCG 1 tablet Orally On ce a day Active Vitamin D3 50 MCG (1999 UT) 1 capsule Or ally Once a day for 30 day(s) Active Sinus Relief - as directed Sublingu al as needed Active predniSONE 10 MG 5 tablets at the vishnu e time in the morning for 3 days, then 4 tablets for 3 days, then 3 tablets for 3 days, then 2 tablets for 3 days. Then resume regular 10 mg daily dose Orally Once a day 01/12/2025 Active Tylenol 325 MG 1 tablet as needed Orally every 6 hrs Active IMMUNIZATIONS Vaccine Route Administration Date Status Comme nts Influenza, Fluzone QUAD, 3+ yrs, Unknown 03/07/2019 Administered Influenza, Flublok IM Intramuscular 01/16/2021 Administere d SOCIAL HISTORY Tobacco Use: Social History Observation Description Date Details (start date - stop date) Never Smoker NA - NA Sex Assigned At : Social History Observation Description Sex Assigned At Unknown Smoking Question Answer Notes Are you a: never smoker Section Notes: pt never smoke pt never smoke pt never smoke pt never smoke pt never smoke pt never smoke pt never smoke PROBLEMS Problem Type ICD Code Onset Dates Problem Status W/U Status Risk SNOMED Code Notes Problem Vitamin D deficiency (E55.9) Active confirmed 37517737 Problem Myalgia (M79.1) Active confirmed 924418 01 Problem Unspecified asthma, uncomplicated (J45.909) Active confirmed Uncomplicated asthma (disorder) (124875099) Problem Medication monitoring encounter (Z51.81) Active confirmed 351901281 Problem Osteoporosis (M81.0) Active confirmed 52221550 Problem Unspecified osteoarthritis, unspecified site (M19.90) Active confirmed Osteoarthritis (679417884) Problem Trigeminal neuralgia (G50.0) Active confirmed 70436396 Problem Raynaud's syndrome without gangrene (I73.00) Active confirmed Raynaud's disea se (350999973) Problem Acute recurrent maxillary sinusitis (J01.01) Active confirmed 186513727 Problem Systemic lupus erythematosus, unspecified (M32.9) Active confirmed Systemic lupus erythematosus (99930214) Problem Chilblains, initial encounter (T69.1XXA) Active confirmed 62228683 Problem Primary osteoarthritis involving multiple joints (M15.0) Active confirmed 924525056 Problem Lupus erythematosus (L93.0) Active confirmed 041746626 Problem Migraine without status migrainosus, not intractable, unspecified migraine type (G43.909) Active confirmed 86330155 Problem Primary osteoarthritis of left knee (M17.12) Active confirmed 262174209 Problem Tendonitis (M77.9) Active confirmed 348 34050 Problem Primary osteoarthritis of first carpometacarpal joint of right hand (M18.11) Active confirmed 64936384 Problem Hyperlipidemia, unspecified hyperlipidemia type (E78.5) Active confirmed 62459341 Problem Trigger finger of left thumb (M65.312) Active confirmed 498527923057276 Problem Tendonitis of wrist, right (M77.8) Active confirmed 797810579 Problem Pain of left hip joint (M25.552) Active confirmed 78862942 Problem Pain in pelvis (R10.2) Active confirmed 16532233 Problem Asthma, unspecified asthma severity, unspecified whether complicated, unspecified whether persistent (J45.909) Active confirmed 074025127 Problem Age-related osteoporosis with current pathological fracture, other site, subsequent encounter for fracture with routine healing (M80.0AXD) Active confirmed Problem Frequent headaches (R51.9) Active confirmed 824945311 VITAL SIGNS Blood pressure diastolic 82 mm Hg 01/05/2025 Height 61 in 01/05/2025 Blood pressure systolic 130 mm Hg 01/05/2025 Weight 135.2 lbs 01/05/2025 BMI 25.54 kg/m2 01/05/2025 Encounters Encounter Location Date Provider Diagnosis [address] [address] 05/08/2024 DAVID ALVARADO Trigeminal neuralgia G50.[address] [address] 05/08/2024 DAVID ALVARADO [address] [address] 08/20/2024 DAVID ALVARADO Encounter for genera l adult medical examination without abnormal findings Z00.00 ; Migraine without status migrainosus, not intractable, unspecified migraine type G43.909 ; Lupus erythematosus L93.0 ; Vitamin D deficiency E55.9 and Hyperlipidemia, unspecified hyperlipidemia type E78.[address] [address] 09/24/2024 DAVID ALVARADO [address] [address] 11/10/2024 DAVID ALVARADO [address] [address] 11/11/2024 MICHAEL KONG Acute right-sided lo w back pain without sciatica M54.50 ; Rib pain R07.81 and Closed fracture of left side of mandible, unspecified mandibular site, initial encounter S02.609A [address] [address] 11/12/2024 DAVID ALVARADO [address] [address] 11/13/2024 MICHAEL KONG [address] [address] 11/13/2024 DAVID ALVARADO [address] [address] 11/18/2024 DAVID ALVARADO [address] [address] 11/23/2024 DAVID ALVARADO [address] [address] 11/24/2024 DAVID ALVARADO [address] [address] 11/25/2024 MICHAEL KONG Acute right-sided lo w back pain without sciatica M54.50 and Closed fracture of left side of mandible, unspecified mandibular site, initial encounter S02.609A [address] [address] 11/27/2024 DAVID ALVARADO [address] [address] 12/29/2024 DAVID ALVARADO [place] [phone] 01/05/2025 DAVID ALVARADO Bilateral low back pain without sciatica, unspecified chronicity M54.50 and Mid back pain M54.9 [place] [id number] 01/05/2025 DAVID ALVARADO Midline thoracic dawood k pain, unspecified chronicity M54.6 [place] [id number] 01/11/2025 DAVID ALVARADO Thoracic back pain, unspecified back pain laterality, unspecified chronicity M54.6 and Lumbar back pain M54.[address] [address] 01/18/2025 DAVID ALVARADO Dysuria R30.0 [place] [id number] 01/21/2025 DAVID ALVARADO [address] [address] 01/21/2025 DAVID ALVARADO [address] [address] 03/10/2025 DAVID ALVARADO [address] [address] 04/01/2025 DAVID ALVARADO ASSESSMENTS Encounter Date Diagnosis Assessment Notes Treatment Notes Treatment Clinical Notes Section Notes 01/18/2025 Dysuria (ICD-10 - R30.0) 01/11/2025 Thoracic back pain, unspecified back pain laterality, unspecified chronicity (ICD-10 - M54.6) 01/05/2025 Midline thoracic back pain, unspecified chronicity (ICD-10 - M54.6) 01/05/2025 Bilateral low back pain without sciatica, unspecified chronicity (ICD-10 - M54.50) X-rays ordered. Tylenol 2 tabs every 8 hours as needed. Ice and heat as discussed. Further treatment and/or evaluation based on test results. Continue with PT as scheduled. Return here as needed. 01/05/2025 Mid back pain (ICD-10 - M54.9) See bilateral lower back pain plan 11/25/2024 Closed fracture of left side of mandible, unspecified mandibular site, initial encounter (ICD-10 - S02.609A) 11/25/2024 Acute right-sided low back pain without sciatica (ICD-10 - M54.50) 11/11/2024 Acute right-sided low back pain without sciatica (ICD-10 - M54.50) Most likely muscular/possible SI joint problem as patient has been mobile on this through her entire trip to [place] for the last 2 weeks. She is having problems doing the stairs in her home and would like to do some physical therapy. Patient cannot take anti-inflammatori es due to stomach upset with her steroids. She is advised to use heat or ice to her back as well as she can try lidocaine patches and or diclofenac gel. Patient to follow-up if not improved. 11/11/2024 Rib pain (ICD-10 - R07.81) Patient has rib pain but no fractures per the ED report of no fractures on the chest x-ray. There is definitely bruising. She can use ice or heat whichever is more comfortable. Patient advised to take 10 deep breaths every hour to avoid atelectasis and pneumonia. 05/08/2024 Trigeminal neuralgia (ICD-10 - G50.0) 08/20/2024 Migraine without status migrainosus, not intractable, unspecified migraine type (ICD-10 - G43.909) No recent migraines. Continue almotriptan 12.5 mg as needed and amitriptyline 10 mg 2 tablets every other day. Will continue to monitor. 08/20/2024 Encounter for general adult medical examination without abnormal findings (ICD-10 - Z00.00) AWV in 1 year. Patient is due for tetanus and Prevnar 20. Declines today and states she will follow-up at her pharmacy to get these shots done. Stated that she has a lot to do the next few days and does not want to take the chance of feeling ill after the shots. Up-to-date with colonoscopy. Up-to-date with eye care and dental care. No longer seeing gynecology. Up-to-date with mammogram. 08/20/2024 Lupus erythematosus (ICD-10 - L93.0) Currently stable. Follow-up with rheumatology as scheduled. We will continue to monitor. 11/11/2024 Closed fracture of left side of mandible, unspecified mandibular site, initial encounter (ICD-10 - S02.609A) Patient to continue using ice to her swollen jaw. She should wrap it in a washcloth to avoid cold giles to her face. Patient is advised that I will also do a official referral for urgent appointment to the [facility] maxillofacial surgeons that she has the call into anyway. Patient will continue to take Tylenol for pain but is advised that she can take the children's formula liquid. 01/11/2025 Lumbar back pain (ICD-10 - M54.50) 08/20/2024 Vitamin D deficiency (ICD-10 - E55.9) Labs ordered. Continue vitamin D3 2000 units daily. We will continue to monitor and can adjust as indicated. 08/20/2024 Hyperlipidemia, unspecified hyperlipidemia type (ICD-10 - E78.5) Labs ordered. Discussed diet, exercise and weight. We will continue to monitor. 08/20/2024 Other All HRA questions answered. Emphasized benefit of regular aerobic exercise/healthy diet. *See HPI/preventive medicine Health Risk Assessment reviewed with patient and scanned into chart PLAN OF TREATMENT Pending Test Test Name Order Date XR Thoracic Spine 4 views 01/05/2025 [facility] MEDICAL DOCTOR MD ANTIBODIES 06/01/2015 AST ( SGOT) 01/16/2021 ALT(DO NOT USE) 01/16/2021 AST ( SGOT) 07/20/2021 ALT(DO NOT USE) 07/20/2021 AST ( SGOT) 10/10/2021 ALT(DO NOT USE) 10/10/2021 AST ( SGOT) 11/27/2021 ALT(DO NOT USE) 11/27/2021 Future Test Test Name Order Date ESR 08/24/2019 ALBUMIN 08/24/2019 AST ( SGOT) 08/24/2019 CREATININE 08/24/2019 CRP 08/24/2019 CBC W/ AUTOMATED DIFF 08/24/2019 Complement 3 08/24/2019 Complement 4 08/24/2019 ALT(DO NOT USE) 08/24/2019 URINALYSIS WITH MICROSCOPIC 08/24/2019 ELECTROLYTES 08/24/2019 DNA ANTIBODY, DOUBLE STRANDED(Anti Nativ e DNA) 08/24/2019 Next Appt Details Provider Name:DAVID ALVARADO , 04/01/2025 10:40:00 AM, [address] [place] [address], [phone], Provider Name:DAVID ALVARADO , 08/23/2025 09:20:00 AM, [address] [place], [address], Insurance Providers Payer Name Payer Address Payer Phone Subscriber Number Group Number Insured Name Patient Relationship to Insured Coverage Start Date Coverage End Date [employer]ICARE [email or web address] [address] [place] [address] [id number] MATTI ADAM Self - patient is the insured [facility] [address] [place] [address] [id number] MATTI ADAM Self - patient is the insured 4 MEDICATIONS ADMINISTERED Medication Instructions Date of Administration Dosage Notes Triamcinolone Acetonide, mul ti-dose vial, 10/10/2021 40 mg MEDICAL (GENERAL) HISTORY Medical History History ICD Code headaches lupus migraine headache osteoarthritis pneumonia fracture disc lumbar spine Covid 19, mid July 2019, Feb 2020 Allergy-Dr Sheppard Asthma Dr Sheppard in [place] High cholesterol Eye disease osteoporosis raynaud's disease ulcers eyes trigeminal neuralgia rosacea colonoscopy 11/2021 Dr Morse repeat in 10 years. Surgical History Surgery Date(Month/Year) cataract surgery 01/2023 root canal 12/2022 hammer toes surgery- left foot 2006 oral surgery 01/08/22 bunionectomy-bilateral 1996, 2002 hemorroidectomy 2013
== END 2025-04-01 08:28 | disposition home or self-care (01) ==
LOC: HO.HPHYS 07:59
PROVIDERS: PCP Internal Medicine; Visit Provider Physical Medicine & Rehabilitation
DX: M54.6 Pain in thoracic spine (principal); M54.50 Low back pain, unspecified; G89.29 Other chronic pain; S32.050G Wedge compression fracture of fifth lumbar vertebra, subsequent encounter for fracture with delayed healing
CPT/HCPCS: 99214; G2211

== ENCOUNTER → 2025-04-01 07:59 | Outpatient (BNVA) | payer MEDICARE, OTHER, SELFPAY | PROVIDERS: PCP Internal Medicine; Visit Provider Physical Medicine & Rehabilitation | DX: S32.050G Wedge compression fracture of fifth lumbar vertebra, subsequent encounter for fracture with delayed healing (principal); M54.50 Low back pain, unspecified; M54.6 Pain in thoracic spine; G89.29 Other chronic pain | CPT/HCPCS: 99212 ==

== ENCOUNTER 2025-04-12 08:14 | Outpatient (AMB) | payer MEDICARE, OTHER, SELFPAY ==
--- OUTSIDE RECORDS SUMMARY | 2024-11-13 05:00 | XMS_ITS ---
Author Organization [facility] Address [address] [place] [address] Care Team Providers Care Drug Discovery Informatics Specialist Name Role Phone DAVID ALVARADO Primary Care Provider REASON FOR VISIT PG/fall/jaw fracture, back injury Encounters Encounter Location Date Provider Diagnosis [address] [address] 11/13/2024 DAVID ALVARADO Plan Of Treatment Next Appt Details Provider Name:DAVID BUI, 08/23/2025 09:20:00 AM, [address] [place] [address], [phone], Progress Notes * MATTI ADAM ADOB:1950 (75 yo F)Acc No.[id number]:11/13/2024 Progress Notes Patient: MATTI CRUZ Provider: Yoselin GIBSON :1950 A ge:74 Y S ex:Female Date:11/13/2024 Address:[address] [place] [phone] Subjective: * Chief Complaints: * P G/fall/jaw fracture, back injury * Electronic signature of GEOVANNI ALVARADO PA-C. P on 04/12/2025 at 08:50 AM EST Sign off status: Pending * Provider: Yoselin GIBSON Date: 0 11/13/2024 Generated for Printi ng/Charlene/Gio on: 1 06/13/2024 08:50 AM EST
--- NOTE | 2025-04-12 08:17 | A.OFFVIS_ITS ---
Vital Signs 3 04/12/25 08:21 Height 5 ft 2 in Weight 140 lb BMI 25.6 BP 139/68 Blood Pressure Location Rt brachial Position Sitting Pulse 80 Pulse Source Pulse Oximeter Pulse Oximetry (%) 97 Oxygen Delivery Method Room Air Intake Visit Reasons: eval & treat for possible vertebroplasty Intake Note: Pain today 06/08 Auto Transmission Specialist Required: No Allergies amoxicillin Allergy (Unknown, Verified 04/12/25 08:27) Unknown aspirin Allergy (Unknown, Verified 04/12/25 08:27) Unknown ciprofloxacin (From Cipro) Allergy (Unknown, Verified 04/12/25 08:27) Unknown codeine Allergy (Unknown, Verified 04/12/25 08:27) Unknown epinephrine Allergy (Unknown, Verified 04/12/25 08:27) Unknown erythromycin base Allergy (Unknown, Verified 04/12/25 08:27) Unknown hydroxychloroquine (From Plaquenil) Allergy (Unknown, Verified 04/12/25 08:27) Unknown omeprazole (From Prilosec) Allergy (Unknown, Verified 04/12/25 08:27) Unknown Quinolones Allergy (Unknown, Verified 04/12/25 08:27) Unknown tramadol Allergy (Unknown, Verified 04/12/25 08:27) Unknown NSAIDS Allergy (Unknown, Uncoded 03/24/25 13:14) Unknown HPI Comments Details: The patient is a pleasant 75 year old female presenting for an initial evaluation for mid and lower back pain. She was referred by her Corrections Lieutenant, Dr. Mcfarland, for potential vertebroplasty. The patient's pain began in early October of this year after she picked up a heavy object, at which time she developed severe pain in the right side of her lower back that radiated to her mid-back. She reports a subsequent injury closer to November from lifting something heavy, which she believes initiated pain on the left side. Initially, the pain was severe enough to confine her to bed. She has tried physical therapy, which provided only temporary relief. An MRI of the thoracic and lumbar spine performed on February 04, 2025, revealed multiple chronic compression fractures at T7, T9, and T11, a chronic L2 compression fracture, and an acute or subacute superior central endplate compression fracture deformity at L5. Her medical history is significant for systemic lupus erythematosus, diagnosed in 1990, for which she has been on long-term low-dose prednisone. She also has a history of osteopenia, although she has not had a bone scan this year. Past surgical history includes bunion and hammer toe surgeries in 2006. She has never had back surgery. The patient lives alone and is independent, though she did receive services when she was first injured. She does some exercises at home but has been doing less since the back pain started. Pain Description - Onset: Began in early October after lifting a heavy object. - Location: Lower right and lower left back with midline tenderness. - Radiation: Initially radiated from the right lower back to the mid-back; also reports associated anterior abdominal pain. - Quality: Described as jumping, tugging, pulling, cramping, tight, squeezing, sore, hurting, and aching. - Severity: Currently a 2-3/10 in the morning, reaches 8-9/10 with activities. - Exacerbating factors: Walking, activity, and eating. - Relieving factors: Pain is better in the morning after being in bed all night. - Associated Symptoms: Causes tiredness and exhaustion and limitations of ADLs. - Interference with function: Affects daily activities, functioning, mobility, and sleep. Pain Management - Affect: The pain causes her to have erratic sleep, as she sleeps whenever she is not in pain, which can be during the day. - Analgesia: She has tried Tylenol, which she reports has not helped much, especially for severe pain. - Current Pain: Her pain level at the time of the visit was a 2 to 3 out of 10, noting it is early in the morning. - Activities of Daily Living: The pain affects her daily activities, functioning, and mobility. - She has been exercising less since the pain began. - Aberrant Drug Related Behaviors: She endorsed not wanting to overuse Tylenol. Oswestry Low Back Pain Disability Score=18 [facility] Medical History (Updated 04/12/25 @ 08:55 by MILAGROS [place]) Lumbar compression fracture Low back pain Thoracic spine pain Surgical History Status post left foot surgery (Unknown) Social History Household Members: Spouse Alcohol intake: current Alcohol intake frequency: does not drink Patient Tobacco Use Status: Never used Tobacco Current occupational status: retired Review of Systems Narrative - Constitutional: Reports fatigue and exhaustion due to pain. - Gastrointestinal: Reports pain in the front, which she attributes to her back, that is exacerbated by eating. - Musculoskeletal: Reports pain in the lower right and left back. - Neurological: Reports erratic sleep due to pain. - Denies radiating pain that travels through the buttock and back of the leg. Const All systems reviewed & are unremarkable except as noted in HPI and below Physical Exam Vital Signs: Last Vital Signs Pulse 80 04/12/25 08:21 BP 139/68 04/12/25 08:21 Pulse Ox 97 04/12/25 08:21 Oxygen Delivery Method Room Air 04/12/25 08:21 BMI result Body Mass Index 25.6 General: Appears afebrile. Alert and oriented. Mood and affect appropriate. Follows and participates in conversation appropriately. Respiratory effort is unlabored. No cough. Able to transition from sit to stand unassisted. Ambulates with bilaterally normal heel strike and toe off. General: Yes no CVA tenderness Back/Spine/Pelvis Other: Limited lumbar ROM due to pain. Lumbar range of motion is non-painful with extension; forward flexion is non-painful at time of exam. Moderate TTP in the lower midline lumbar spine region. Straight leg raise testing bilaterally does not provoke radicular symptoms but does cause a stretching sensation in the back. Demonstrates 5/5 strength of quadriceps bilaterally as well as flexion/dorsiflexion of bilateral feet against resistance. 2+ pedal pulses bilaterally. No groin pain with I/E hip rotations. Valsalva maneuver negative. Back: no CVA tenderness Cervical Spine: cervical ROM normal, cervical muscular tenderness, pain with cervical ROM and No Cervical spine tenderness Thoracic/Lumbar Spine: thoracic and lumbar spine normal to inspection, No Thoracic/lumbar spine scar(s), Lasegue's sign negative, straight leg raise negative bilaterally, kyphosis, pain with thoraco-lumbar ROM, thoraco-lumbar ROM limited, Thoracic/lumbar scoliosis, No thoracic spinal tenderness and lumbar spinal tenderness at L4 and at L5 Sacroiliac joints: bilaterally tender to palpation Results Reviewed Results Reviewed: MR THORACIC SPINE WITHOUT CONTRAST 02/04/25 RAYUS INDICATION: Back pain COMPARISON: None. TECHNIQUE: Multiplanar T1 and T2-weighted imaging of the thoracic spine. FINDINGS: The thoracic spinal cord demonstrates uniform appearing signal without evidence of intramedullary expansion and without evidence of cord compression. There is anterior wedging of the vertebral bodies of T7, T9, and T11 consistent with chronic compression fracture deformities. Throughout the thoracic spine, diffuse degenerative disc changes are present with varying degrees of disc desiccation. T1-T10: The central canal and neural foramen are patent. T10-11: Mild disc bulging is present. The central canal and neural foramen are patent. T11-L1: The central canal and neural foramen are patent. IMPRESSION: 1. Chronic compression fracture deformities 2. No high-grade canal or foraminal stenosis is identified. MR LUMBAR SPINE WITHOUT CONTRAST 02/04/25 INDICATION: Back pain COMPARISON: None. TECHNIQUE: Multiplanar T1 and T2-weighted imaging of the lumbar spine. FINDINGS: The conus is in its normal position at the level of L1. There is levoscoliosis present. There is an acute or subacute superior central endplate compression fracture deformity present of L5 with bone marrow edema. No significant retropulsion is seen of the fracture into the bony spinal canal. There is a chronic anterior superior compression fracture deformity present of L2. Schmorl's node formation is present at L1-2. Throughout the lumbar spine, diffuse degenerative disc changes are present with varying degrees of disc desiccation. T12-L1: The central canal and neural foramen are patent. L1-L2: Mild disc bulging is present. The central canal and neural foramen are patent. L2-3: Mild disc bulging is present. There is moderate narrowing present of the right neural foramen. The central canal and neural foramen are patent. L3-4: Mild disc bulging is present. Moderate facet osteoarthritic changes are present. There is epidural lipomatosis present with mild central canal stenosis. The neural foramen are patent bilaterally. L4-5: Broad-based disc bulging is present. There is moderate central canal stenosis present. There is prominence of the epidural fat. Mild facet osteoarthritic changes are present. There is moderate narrowing present of both neural foramen. L5-S1: Mild disc bulging is present. Moderate left facet osteoarthritic changes are present. There is severe left foraminal stenosis present. The central canal and right neural foramen are patent. IMPRESSION: 1. There is an acute or subacute superior central endplate compression fracture deformity present of L5. 2. Diffuse spondylotic findings as described. Assessment & Plan Assessment & Plan (1) Lumbar compression fracture: Code(s): S32.000A - Wedge compression fracture of unspecified lumbar vertebra, initial encounter for closed fracture Category: Medical Qualifiers: Encounter type: subsequent encounter Fracture healing: with delayed healing Lumbar vertebra fracture level: L5 Qualified Code(s): S32.050G - Wedge compression fracture of fifth lumbar vertebra, subsequent encounter for fracture with delayed healing (2) Thoracic spine pain: Code(s): M54.6 - Pain in thoracic spine Category: Medical (3) Low back pain: Code(s): M54.50 - Low back pain, unspecified Category: Medical Qualifiers: Back pain laterality: midline Chronicity: chronic Sciatica presence: w ithout sciatica Qualified Code(s): M54.50 - Low back pain, unspecified; G89.29 - Other chronic pain Plan The patient presents with multifactorial back pain from multiple vertebral compression fractures and degenerative changes. Her long-term prednisone use for lupus raises suspicion for osteoporotic fractures. An urgent bone densitometry scan will be ordered to assess for osteoporosis, as initial steps. We will tentatively plan for L5 kyphoplasty with sedation and fluoroscopy. Expectations, risks and benefits were reviewed. We also discussed diagnostic medial branch blocks for axial low back pain for potential radiofrequency ablation, which could provide up to a year of pain relief. She was provided with informational pamphlets on kyphoplasty, SpineJack kyphoplasty and radiofrequency ablation. All questions and concerns have been answered and patient agreed with the treatment plan. Follow up for bone scan results and sooner as needed. Patient was informed and verbally consented to the use of an ambient scribe for clinic note documentation during this visit. Orders: Orders 2 XR DEXA axial skeleton Today G89.29 - Other chronic pain, M47.817 - Spondylosis without myelopathy or radiculopathy, lumbosacral region, M54.50 - Low back pain, unspecified, M54.6 - Pain in thoracic spine, M81.0 - Age-related osteoporosis without current pathological fracture, S32.050G - Wedge compression fracture of fifth lumbar vertebra, subsequent encounter for fracture with delayed healing Coding Level of Care Code New Pt Level 4 (86063) Diagnoses Compression fracture of L5 vertebra with delayed healing, subsequent encounter S32.050G Encounter type: subsequent encounter Fracture healing: with delayed healing Lumbar vertebra fracture level: L5 Thoracic spine pain M54.6 Chronic midline low back pain without sciatica M54.50; G89.29 Back pain laterality: midline Chronicity: chronic Sciatica presence: without sciatica
[2025-04-12 08:21] VITALS: BP 139/68; PULSE 80; O2SAT 97; BMI 25.6
--- OUTSIDE RECORDS SUMMARY | 2025-04-12 08:48 | XMS_ITS | Clinical Summary ---
Author Organization [facility] Prior to 09/26/24 Address [address] [place] [address] Care Team Providers Care Wellness Coach Name Role Phone Butch Veliz Primary Care Provider [phone] Allergies Active Allergy Reactions Criticality Noted Date [...] every morning with breakfast. 0 Active Tiotropium [place] Monohydrate (Spiriva Respimat) 2.5 MCG/ACT AERS Take [...] age to complete this topic Care Teams Wellness Coach Relationship Specialty Start Date End Date Butch Veliz PA PCP - General Physician Curator Of Collections 10/01/22
--- OUTSIDE RECORDS SUMMARY | 2025-04-12 08:48 | XMS_ITS | Clinical Summary ---
Author Organization [facility] Address [address] [place] [address] Care Team Providers Care Dog Breeder Name Role Phone Butch Veliz Primary Care Provider [phone] Immunizations Immunization Administration Dates Next Due Pfizer SARS-CoV-2 COVID-19, mRNA, LNP-S, preservative free 08/13/2020,07/23/2020 Social History Tobacco Use Types Packs/Day Years Used Date Smoking Tobacco: Never Smokeless Tobacco: Never Comments Unknown Sex and Gender Information Value Date Recorded Sex Assigned at Not on file Legal Sex Female 8:48 AM EST Gender Identity Not on file Sexual Orientation Not on file Last Filed Vital Signs Vital Sign Reading Time Taken Comments Blood Pressure 130/80 12/21/2022 10:53 AM EDT Pulse 76 12/21/2022 10:53 AM EDT Temperature - - Respiratory Rate - - Oxygen Saturation - - Inhaled Oxygen Concentration - - Weight 60.8 kg (134 lb) 12/21/2022 10:53 AM EDT Height 157.5 cm (5' 2 ) 12/21/2022 10:53 AM EDT Body Mass Index 24.51 12/21/2022 10:53 AM EDT Plan of Treatment Health Maintenance Due Date Last Done Comments Breast Cancer Screening 1950 Colorectal Cancer Screening: Colonoscopy 1950 DTaP,Tdap,and Td Vaccines (1 - Tdap) 01/21/1971 Pneumococcal Vaccine: 50+ Years (1 of 1 - PCV) 01/21/2002 Zoster Vaccines (1 of 2) 01/21/2002 Falls Risk Assessment 04/08/2022 Hepatitis C Screening 04/08/2022 Osteoporosis Screening (Bone Density Screening) 04/08/2022 Social Influencers of Health Screening 04/08/2022 Depression Screening 04/29/2024 COVID-19 Vaccine (3 - 2024-2 6 season) 2024 08/13/2020, 07/23/2020 Influenza Vaccine (#1) 2024 RSV Immunization Adult Patients (1 - 1-dose 75+ series) 01/21/2027 HIB Vaccines Aged Out No longer eligi ble based on patient's age to complete this topic HPV Vaccines Aged Out No longer eligi ble based on patient's age to complete this topic Hepatitis A Vaccines Aged Out No long er eligible based on patient's age to complete this topic Hepatitis B Vaccines Aged Out No long er eligible based on patient's age to complete this topic IPV Vaccines Aged Out No longer eligi ble based on patient's age to complete this topic MMR Vaccines Aged Out No longer eligi ble based on patient's age to complete this topic Meningococcal ACWY Vaccine Aged Out N o longer eligible based on patient's age to complete this topic Meningococcal B Vaccine Aged Out No l onger eligible based on patient's age to complete this topic RSV Immunization Patients Under 20 months Aged Out No longer eligible b ased on patient's age to complete this topic Varicella Vaccines Aged Out No longer eligible based on patient's age to complete this topic Care Teams Dog Breeder Relationship Specialty Start Date End Date Butch Veliz PA [address] [place] [id number] PCP - General 10/01/22
--- OUTSIDE RECORDS SUMMARY | 2025-04-12 08:49 | XMS_ITS | Patient Health Record ---
Author Organization [facility] Address [address] [place] [address] Care Team Providers Care Hatchery Attendant Name Role Phone ALVARADODAVID BUI Primary Care Provider MICHAEL KONG Unavailable [phone] Allergies Allergen (clinical drug ingredient) Drug/Non Drug Allergy [...] tramadol traMADol extreme nausea Drug Allergy Active Reason For Referral Reason Assess and treat Diagnosis 1 Closed fracture of l eft side of mandible, unspecified mandibular site, initial encounter (S02.609A) Referral Organization [facility] Referring Provider First Name MICHAEL Referring Provider Last Name BEBA Referring Provider Speciality Internal M edicine Referred Provider Specialty Maxillofacia l Surgery General Notes MICHAEL KONG 02:49:17 PM > patient has already called [facility] maxillofacial surgeons please send this with a copy of the ED attendance summary and this note.YOBANI Alex F CMA 11/13/2024 09:07:09 AM > [facility] ([facility]) , [address] [place] [id number], , F# [phone] -*OV note, imaging report, urgent care note enclosed; *Requesting urgent appt for pt please. Thank you, Riaz HILTON [facility] 11/13/2024 09:11:03 AM > Fwd> Shoshana, if insrance referral is needed. Thank you., YOBANIShoshana P Admin 11/16/2024 07:40:00 AM > no referral required with pt's insurance plan>faxed to [phone]>encounter closed Referral Priority Urgent Referral Appointment Date 11/13/2024 Reason asses and treat for PT Diagnosis 1 Acute right-sided lo w back pain without sciatica (M54.50) Referral Organization [facility] Referring Provider First Name MCIHAEL Referring Provider Last Name BEBA Referring Provider Speciality Internal edicine Referred Provider Specialty Physical [facility] General Notes MICHAEL KONG 02:51:03 PM > Home care physical therapy through [facility] if they have room what for this patient, Riaz HILTON [facility] 11/11/2024 04:28:49 PM > Rachidesperanza # [phone] - OV notes enclosed; *requesting vna PT services for pt please. Thank you. Referral Priority Urgent Referral Organization [facility] Referring Provider First Name MICHAEL Referring Provider Last Name BEBA Referring Provider Speciality Internal edicine Referred Organization [facility] Referred Provider Specialty Physical [facility] General Notes YOBANIShoshana P Admin 11:49:32 AM > , Haydee Hare/[phone], patient was referred by Dr. Kong and they will be starting physical therapy with patient tomorrow 11/19/2024., Shoshana HILTON P Admin 03/04/2025 09:34:35 AM > nrr>encounter closed Referral Priority Routine Referral Appointment Date 11/19/2024 Reason Patient requesting e valuation by [facility] for services Diagnosis 1 Acute right-sided lo w back pain without sciatica (M54.50) Referral Organization [facility] Referring Provider First Name MICHAEL Referring Provider Last Name BEBA Referring Provider Speciality Internal edicine Referred Provider Specialty Other Medica l [facility] General Notes DAVID ALVARADO 11/27 04:01:19 PM > patient needs PT and OT services and also needs assistance with getting around outside of the home. Patient requesting [facility] for evaluation., Antoinette HILTON NATALIE 11/29/2024 08:43:05 PM > Referral faxed to F) [phone] (P) [phone], Alicia HILTONie Everton NATALIE 12/17/2024 09:17:42 AM [...] osteoart hritis, unspecified site (M19.90) Referral Organization [facility] Referring Provider First Name DAVID Referring Provider Last Name JENNY Referring Provider Speciality Internal M edicine Referred Provider Specialty Physiatry General Notes DAVID ALVARADO 01/12 03:29:39 PM > URGENT referral to Dr. Tony Mcfarland at [address] in [place]. Patient with increased thoracic back pain and [...] Notes Antoinette HILTON MA 09:00:40 AM > (p) [phone] (f)[phone], Antoinette HILTON [place] 02/17/2025 03:55:32 PM > see incoming docs pt was seen 02/01/25 Referral Priority Urgent Referral Appointment Date 02/01/2025 Medications Medication SIG (Take, Route, Frequency, Duration) Notes Start Date End Date Status Tylenol 325 MG Tablet 1 tablet as needed Orally every 6 hrs Active Vitamin D3 50 MCG (2000 UT) Capsule 1 capsule Orally Once a day; Duration: 30 day(s) Active Vitamin B-12 1000 MCG Tablet 1 tablet Or ally Once a day Active Sinus Relief - Tablet Sublingual as directed Sublingual as needed Active Almotriptan Malate 12.5 MG Tablet 1 tablet at onset of headache may repeat after 2 hours if headache persists as needed Orally Once a day as needed Active predniSONE 10 MG Tablet 1 tab(s) Orally Once a day 09/13/2022 Active Amitriptyline HCl 10 MG Tablet 1 tablet at bedtime Orally Once a day Active Immunizations Vaccine Route Administration Date Status Comme nts Influenza, Flublok IM Intramuscular 01/16/2021 Administered Influenza, Fluzone HD 65+ IM Intramuscular 01/27/2025 Administered pt unsure of da te but knows its in 01/2025 Influenza, Fluzone QUAD, 3+ yrs, Unknown 03/07/2019 Administered Social History Tobacco Use: Social History Observation Description Date Details (start date - stop date) Never Smoker NA - NA Social History Tobacco Use: Social Info Question Answer Notes Smoking Are you a: never smoker Additional Details Category Social Info Options Details General Occupation: Retired asbestos exposure: no Past year's travels: 2024 alcohol use: no drug use: no Hobbies/Exercise habits: about 1 /2 to 1 mile of walking; does try for 2mi/day total Coffee/Tea/Soda: yes 3-4 cups of cof fee, 1-2 cups of tea daily Marital Status single experience no Living with alone Pets none smokers in household no Section Notes: pt never smoke pt never smoke pt never smoke pt never smoke pt never smoke pt never smoke pt never smoke pt never smoke Problems Problem Type SNOMED Code ICD Code Onset Dates Problem Status W/U Status Risk Notes Problem Vitamin D deficiency (35504545) Vitamin D deficiency (E55.9) Active confirmed Problem Myalgia (17251403) Myalgia (M79.1) Active confi rmed Problem Uncomplicated asthma (disorder) (558053199) Unspecified asthma, uncomplicated (J45.909) Active confirmed Problem Medication monitoring (303309123) Medication monitoring encounter (Z51.81) Active confirmed Problem Osteoporosis (79804573) Osteoporosis (M81.0) Active confirmed Problem Osteoarthritis (893861005) Unspecified osteoarthritis, unspecified site (M19.90) Active confirmed Problem Trigeminal neuralgia (86708328) Trigeminal neuralgia (G50.0) Active confirmed Problem Raynaud's disease (390475283) Raynaud's syndrome without gangrene (I73.00) Active confirmed Problem Acute maxillary sinusitis (33153469) Acute recurrent maxillary sinusitis (J01.01) Active confirmed Problem Systemic lupus erythematosus (94712411) Systemic lupus erythematosus, unspecified (M32.9) Active confirmed Problem Chilblains (13637712) Chilblains, initial encounter (T69.1XXA) Active confirmed Problem Primary osteoarthritis (339821078) Primary osteoarthritis involving multiple joints (M15.0) Active confirmed Problem Lupus erythematosus (953479125) Lupus erythematosus (L93.0) Active confirmed Problem Migraine (97039579) Migraine without status migrainosus, not intractable, unspecified migraine type (G43.909) Active confirmed Problem Osteoarthritis of knee (203365110) Primary osteoarthritis of left knee (M17.12) Active confirmed Problem Tendonitis (56512163) Tendonitis (M77.9) Active confirmed Problem Localized, primary osteoarthritis of the hand (706091932) Primary osteoarthritis of first carpometacarpal joint of right hand (M18.11) Active confirmed Problem Hyperlipidaemia (52686927) Hyperlipidemia, unspecified hyperlipidemia type (E78.5) Active confirmed Problem Acquired trigger finger (5769618) Trigger finger of left thumb (M65.312) Active confirmed Problem Tendonitis of right wrist (15280261928001211 ) Tendonitis of wrist, right (M77.8) Active confirmed Problem Pain of left hip joint (816486091941337) Pain of left hip joint (M25.552) Active confirmed Problem Pain in pelvis (06873665) Pain in pelvis (R10.2) Active confirmed Problem Asthma without status asthmaticus (05536651) Asthma, unspecified asthma severity, unspecified whether complicated, unspecified whether persistent (J45.909) Active confirmed Problem Late effect of fracture of spine AND/OR trunk without spinal cord lesion (4107989) Compression fracture of thoracic vertebra, unspecified thoracic vertebral level, sequela (S22.000S) Active confirmed Problem Age-related osteoporosis with current pathological fracture, other site, subsequent encounter for fracture with routine healing (M80.0AXD) Active confirmed Problem Frequent headache (finding) (172765963) Frequent headaches (R51.9) Active confirmed Vital Signs Blood pressure diastolic 80 mm Hg 04/01/2025 Height 61 in 04/01/2025 Blood pressure systolic 122 mm Hg 04/01/2025 Weight 145.2 lbs 04/01/2025 BMI 27.43 kg/m2 04/01/2025 Encounters Encounter Location Date Provider Diagnosis [address] [address] 08/20/2024 DAVID ALVARADO Encounter for genera l adult medical examination without abnormal findings Z00.00 ; Migraine without status migrainosus, not intractable, unspecified migraine type G43.909 ; Lupus erythematosus L93.0 ; Vitamin D deficiency E55.9 and Hyperlipidemia, unspecified hyperlipidemia type E78.5 [place] [phone] 11/11/2024 MICHAEL KONG Acute right-sided lo w back pain without sciatica M54.50 ; Rib pain R07.81 and Closed fracture of left side of mandible, unspecified mandibular site, initial encounter S02.609A [place] [phone] 01/05/2025 DAVID ALVARADO Bilateral low back pain without sciatica, unspecified chronicity M54.50 and Mid back pain M54.9 [place] [phone] 04/01/2025 DAVID ALVARADO Compression fracture of thoracic vertebra, unspecified thoracic vertebral level, sequela S22.000S and Mid back pain M54.[address] [address] 11/10/2024 DAVID ALVARADO [address] [address] 11/18/2024 DAVID ALVARADO [facility] [address] [place] [address] 11/23/2024 DAVID ALVARADO [facility] [address] [place] [address] 11/24/2024 DAVID ALVARADO [facility] [address] [place] [address] 11/27/2024 DAVID ALVARADO [facility] [address] [place] [address] 12/29/2024 DAVID ALVARADO [facility] [address] [place] [address] 01/05/2025 DAVID ALVARADO Midline thoracic dawood k pain, unspecified chronicity M54.6 [facility] [address] [place] [address] 03/10/2025 DAVID ALVARADO [address] [address] 05/08/2024 DAVID ALVARADO Trigeminal neuralgia G50.0 [facility] [address] [place] [address] 05/08/2024 DAVID ALVARADO [address] [address] 09/24/2024 DAVID ALVARADO [facility] [address] [place] [address] 11/12/2024 DAVID ALVARADO [address] [address] 11/13/2024 MICHAEL KONG [facility] [address] [place] [address] 11/25/2024 MICHAEL KONG Acute right-sided lo w back pain without sciatica M54.50 and Closed fracture of left side of mandible, unspecified mandibular site, initial encounter S02.609A [address] [address] 01/11/2025 DAVID ALVARADO Thoracic back pain, unspecified back pain laterality, unspecified chronicity M54.6 and Lumbar back pain M54.[address] [address] 01/18/2025 DAVID ALVARADO Dysuria R30.0 [facility] [address] [facility] [place] [address] 01/21/2025 DAVID ALVARADO [facility] [address] [facility] [place] [address] 01/21/2025 DAVID ALVARADO Assessments Encounter Date Diagnosis (ICD Code) Assessment Notes Treatment Notes Treatment Clinical Notes Section Notes 01/18/2025 Dysuria (ICD-10 - R30.0) 01/05/2025 Midline thoracic back pain, unspecified chronicity (ICD-10 - M54.6) 11/25/2024 Acute right-sided low back pain without sciatica (ICD-10 - M54.50) 11/25/2024 Closed fracture of left side of mandible, unspecified mandibular site, initial encounter (ICD-10 - S02.609A) 11/11/2024 Rib pain (ICD-10 - R07.81) Patient has rib pain but no fractures per the ED report of no fractures on the chest x-ray. There is definitely bruising. She can use ice or heat whichever is more comfortable. Patient advised to take 10 deep breaths every hour to avoid atelectasis and pneumonia. 11/11/2024 Acute right-sided low back pain without sciatica (ICD-10 - M54.50) Most likely muscular/possible SI joint problem as patient has been mobile on this through her entire trip to [place] for the last 2 weeks. She is having problems doing the stairs in her home and would like to do some physical therapy. Patient cannot take anti-inflammatorie s due to stomach upset with her steroids. She is advised to use heat or ice to her back as well as she can try lidocaine patches and or diclofenac gel. Patient to follow-up if not improved. 01/11/2025 Thoracic back pain, unspecified back pain laterality, unspecified chronicity (ICD-10 - M54.6) 01/05/2025 Mid back pain (ICD-10 - M54.9) See bilateral lower back pain plan 01/05/2025 Bilateral low back pain without sciatica, unspecified chronicity (ICD-10 - M54.50) X-rays ordered. Tylenol 2 tabs every 8 hours as needed. Ice and heat as discussed. Further treatment and/or evaluation based on test results. Continue with PT as scheduled. Return here as needed. 08/20/2024 Encounter for general adult medical examination [...] longer seeing gynecology. Up-to-date with mammogram. 08/20/2024 Migraine without status migrainosus, not intractable, unspecified migraine type (ICD-10 - G43.909) No recent migraines. Continue almotriptan 12.5 mg as needed and amitriptyline 10 mg 2 tablets every other day. Will continue to monitor. 05/08/2024 Trigeminal neuralgia (ICD-10 - G50.0) 04/01/2025 Mid back pain (ICD-10 - M54.9) See compression fracture of thoracic vertebra plan. 04/01/2025 Compression fracture of thoracic vertebra, unspecified thoracic vertebral level, sequela (ICD-10 - S22.000S) Follow-up with interventional radiology as needed. By physiatry. Follow-up with physiatry afterwards as scheduled. Continue with home exercises. Continue with ice and sleep. Gentle stretching. Tylenol as discussed. Follow-up here as needed. 08/20/2024 Lupus erythematosus (ICD-10 - L93.0) Currently stable. Follow-up with rheumatology as scheduled. We will continue to monitor. 01/11/2025 Lumbar back pain (ICD-10 - M54.50) 11/11/2024 Closed fracture of left side of mandible, unspecified mandibular site, initial encounter (ICD-10 - S02.609A) Patient to continue using ice to her swollen jaw. She should wrap it in a washcloth to avoid cold giles to her face. Patient is advised that I will also do a official referral for urgent appointment to the [facility] maxillofacial surgeons that she has the call into anyway. Patient will continue to take Tylenol for pain but is advised that she can take the children's formula liquid. 08/20/2024 Vitamin D deficiency (ICD-10 - E55.9) Labs ordered. Continue vitamin D3 2000 units daily. We will continue to monitor and can adjust as indicated. 08/20/2024 Hyperlipidemia, unspecified hyperlipidemia type (ICD-10 - E78.5) Labs ordered. Discussed diet, exercise and weight. We will continue to monitor. 08/20/2024 Other All HRA questions answered. Emphasized benefit of regular aerobic exercise/healthy diet. *See [facility]/preventive medicine Health Risk Assessment reviewed with patient and scanned into chart Plan Of Treatment Pending Test Test Name Order Date XR Thoracic Spine 4 views 01/05/2025 [employer] ANTIBODIES 06/01/2015 AST ( SGOT) 01/16/2021 ALT(DO [...] DNA) 08/24/2019 Next Appt Details Provider Name:DAVID Streeter RAHEEM BUI, 08/23/2025 09:20:00 AM, [address] [place], [address], Insurance Providers Payer Name Payer Address Payer Phone Subscriber Number Group Number Insured Name Patient Relationship to Insured Coverage Start Date Coverage End Date [employer]ICARE [employer] [address] [place] [address] [id number] KIAMATTI Self - patient is the insured [facility] [address] [place] [address] [phone] [id number] MATTI ADAM Self - patient is the insured 4 Medications Administered Medication Instructions Date of Administration Dosage Notes Triamcinolone Acetonide, mul ti-dose vial, 10/10/2021 40 mg Medical (General) History Medical History History ICD Code headaches lupus migraine headache osteoarthritis pneumonia fracture disc lumbar spine Covid 19, mid July 2019, Feb 2020 Allergy-Dr Sheppard Asthma Dr Sheppard in [place] cholesterol Eye disease osteoporosis raynaud's disease ulcers eyes trigeminal neuralgia rosacea colonoscopy 11/2021 Dr Morse repeat in 10 years. Surgical History Surgery Date(Month/Year) cataract surgery 01/2023 root canal 12/2022 hammer toes surgery- left foot 2006 oral surgery 01/08/22 bunionectomy-bilateral 1996, 2002 hemorroidectomy 2013
--- OUTSIDE RECORDS SUMMARY | 2025-04-12 08:50 | XMS_ITS | Clinical Summary ---
Author Organization [facility] Address [address] [place] [id number] Phone Care Team Providers Care Assistant Professor Of Forestry Name Role Phone Robel Weber MD Unavailable [phone] Chidi Maciel MD Unavailable [phone] Frederick Osorio MD Unavailable [email or web address] Reynold Sanford MD Unavailable [phone] Butch Veliz Primary Care Provider + [phone] Allergies Active Allergy Reactions Criticality Noted Date [...] follows with Dr. Vance of Pulmonology at [facility]. Evaluation 2024, with imaging. Patient felt to be stable and patient reports she was told to follow-up in a couple years. 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 and patient reports no further intervention was [...] 11:59 PM EDT Hospital Encounter [facility] [address] [place] [address] Meme Velázquez DO Discharge Disposition: Home or Self Care 02/24/2025 2:00 PM EDT Office Visit [facility] [address] [place] [address] [place] [address] Meme Velázquez DO Systemic lupus erythematosus, unspecified SLE type, unspecified organ involvement status (Primary Dx); alf (current) use of systemic steroids; Pulmonary nodule, left 02/22/2025 Orders Only [facility] [address] [place] [address] [place] [address] Provider, MD Tamela 02/22/[address] [place] [address] Meme Velázquez DO Fax Number? 02/05/2025 Refill [facility] [address] [place] [address] [place] [address] Meme Velázquez DO Medication Refill from Last [...] Info) Description 05/01/2025 10:15 AM EST Appointment [facility], Bone Density - [address] [address] Ana Peralta MD [address] [place] [address] 05/24/2025 10:30 AM EST Office Visit [facility] Rheumatology [address] [place] [address] Meme Velázquez, [address] [facility], [address] [place] [address] [email or web address] Due Date Last Done Comments [...] unspecified SLE type, unspecified organ involvement status alf (current) use of systemic steroids CREATININE WITH ESTIMATED GLOMERULAR FILTRATION RATE (EGFR) Routine 02/24/2025 3:00 PM EDT Systemic lupus erythematosus, unspecified SLE type, unspecified organ involvement status alf (current) use of systemic steroids BUN Routine 02/24/2025 3:00 PM EDT Systemic lupus erythematosus, unspecified SLE type, unspecified organ involvement status alf (current) use of systemic steroids ALANINE AMINOTRANSFERASE (ALT) Routine 02/24/2025 3:00 PM EDT Systemic lupus erythematosus, unspecified SLE type, 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 organ involvement 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 ASPARTATE AMINOTRANSFERASE (AST) Routine 02/24/2025 3:00 PM EDT Systemic lupus erythematosus, unspecified SLE type, unspecified organ involvement status alf (current) use of systemic steroids CBC AND DIFFERENTIAL Routine 02/24/2025 3:00 PM EDT Systemic lupus erythematosus, unspecified SLE type, 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 organ involvement 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 DOUBLE STRANDED DNA ANTIBODIES Routine 02/24/2025 3:00 PM EDT Systemic lupus erythematosus, unspecified SLE type, unspecified organ involvement status alf (current) use of systemic steroids COMPLEMENT C3 Routine 02/24/2025 3:00 PM EDT Systemic lupus erythematosus, unspecified SLE type, 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 organ involvement 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 Blood 02/24/2025 3:00 PM EDT 02/24/2025 3:10 PM EDT us Meme Velázquez DO LAB BLOOD BKR ORDERABLES F inal Result [facility] [address] [place] [address] * Double stranded DNA antibodies (02/24/2025 3:00 PM EDT) ANTI DSDNA ANTIBODY Negative at 1:10 [facility] Comment: Performing Pathologist, Gabby De La Rosa M.D., Ph.D. [phone] Normal: Negative at 1:10 To interpret a negative test for anti-lac vieux or double stranded DNA antibodies in a [...] ORDERABLES F inal Result Performing Organization Address City/[facility]/ZIP Co de Phone Number [address] [address] * Sedimentation rate (ESR) (02/24/2025 3:00 PM EDT) Pathologist [facility] ESR 13 0 - 30 mm/h [facility] Blood 02/24/2025 3:00 PM EDT 02/24/2025 3:10 PM EDT Meme Velázquez DO LAB BLOOD BKR ORDERABLES F inal Result Performing Organization Address City/[facility]/ZIP Co de Phone Number [facility] [address] [place] [address] * (ABNORMAL) CBC and differential (02/24/2025 3:00 PM EDT) Pathologist [facility] WBC 8.08 4.00 - 11.00 K/uL [facility] RBC 4.13 4.00 - 5.20 M/uL [facility] HGB 13.9 12.0 - 16.0 g/dL [facility] HCT 42.2 36.0 - 46.0 % [facility] PLT 262 150 - 450 K/uL [facility] MCV 102.2(H) 80.0 - 100.0 fL [facility] MCH 33.7(H) 27.0 - 31.0 pg [facility] MCHC 32.9 32.0 - 36.0 g/dL [facility] RDW 13.4 11.5 - 14.5 % [facility] MPV 11.6 8.4 - 12.0 fL [facility] NRBC 0.00 0.00 /100 WBCs [facility] ABSOLUTE NRBC 0.00 0.00 K/uL [facility] DIFF METHOD Auto [facility] NEUTS 88.5(H) 48.0 - 76.0 % [facility] LYMPHS 8.5(L) 18.0 - 41.0 % [facility] MONOS 2.2(L) 4.0 - 11.0 % [facility] EOS 0.0 0.0 - 5.0 % [facility] BASOS 0.2 0.0 - 1.5 % [facility] Granulocytes, immature (%) 0.6 0.0 - 0.9 % [facility] ABSOLUTE NEUTS 7.14 1.92 - 7.60 K/uL [facility] ABSOLUTE LYMPHS 0.69(L) 0.72 - 4.10 K/uL [facility] ABSOLUTE MONOS 0.18 0.16 - 1.10 K/uL [facility] ABSOLUTE EOS 0.00 0.00 - 0.50 K/uL [facility] ABSOLUTE BASOS 0.02 0.00 - 0.15 K/uL [facility] Granulocytes, immature 0.05 0.00 - 0.09 K/uL [facility] Blood 02/24/2025 3:00 PM EDT 02/24/2025 3:10 PM EDT us Meme Velázquez DO LAB BLOOD BKR ORDERABLES F inal Result [facility] [address] [place] [address] * Complement C3 (02/24/2025 3:00 PM EDT) C3 83 81 - 157 mg/dl [facility] Blood 02/24/2025 3:00 PM EDT 02/24/2025 3:10 PM EDT us Meme Velázquez DO LAB BLOOD BKR ORDERABLES F inal Result Performing Organization Address City/[facility] Co de Phone Number [address] [address] * Complement C4 (02/24/2025 3:00 PM EDT) C4 15 12 - 39 mg/dL [facility] Blood 02/24/2025 3:00 PM EDT 02/24/2025 3:10 PM EDT us Meme Velázquez DO LAB BLOOD BKR ORDERABLES F inal Result Performing Organization Address City/[facility] Co de Phone Number [address] [address] * (ABNORMAL) BUN (02/24/2025 3:00 PM EDT) BUN 20(H) 6 - 19 mg/dL [facility] Blood 02/24/2025 3:00 PM EDT 02/24/2025 3:10 PM EDT us Meme Velázquez DO LAB BLOOD BKR ORDERABLES F inal Result Performing Organization Address City/[facility] Co de Phone Number [facility] [address] [place] [address] * Alanine aminotransferase (ALT) (02/24/2025 3:00 PM EDT) ALT 25 0 - 40 U/L [facility] Blood 02/24/2025 3:00 PM EDT 02/24/2025 3:10 PM EDT us Meme Velázquez DO LAB BLOOD BKR ORDERABLES F inal Result [address] [address] * Aspartate aminotransferase (AST) (02/24/2025 3:00 PM EDT) AST 30 0 - 37 U/L [facility] Blood 02/24/2025 3:00 PM EDT 02/24/2025 3:10 PM EDT Meme Fenton Eber DO LAB BLOOD BKR ORDERABLES F inal Result Performing Organization Address [facility]/ZIP Co de Phone Number [address] [address] * Outside MR Imaging Report Only (02/04/2025 4:13 PM EDT) Historical Provider MD KENNEDY MR Final Res ult from Last 3 Months Insurance MEDICARE PART A & B [facility] MEDICARE SUPPLEMENT MEDICARE PART A & B [employer] MEDICARE SUPPLEMENT MEDICARE PART A & B [facility] [facility] MEDICARE SUPPLEMENT MEDICARE PART A & B [facility]ENSION MEDICARE SUPPLEMENT MEDICARE PART A & [facility] MED[facility] SUPPLEMENT MEDICARE PART A & [facility] MEDICARE SUPPLEMENT MEDICARE PART A & B [facility] MEDICARE SUPPLEMENT MEDICARE PART A & B [employer] MEDICARE SUPPLEMENT MEDICARE PART A & B [facility] EX[employer]ION MEDICARE SUPPLEMENT Care Teams Assistant Professor Of Forestry Relationship Specialty Start Date End Date Butch Veliz PA [address] [place] [address] PCP - General Physician Labourers 11/14/22 Robel Weber MD [address] [place] [phone] Ophthalmology 10/02/16 Chidi Maciel MD [address] [place] [address] Ophthalmology 10/02/16 Frederick Osorio MD [address] [place] [address] [email or web address] Rheumatology 10/02/16 Reynold Sanford MD [address] [facility] [address] [place] [address] [email or web address] Historical LMR Provider 02/12/17 Additional Source Comments The information contained in this document represents components of the legal health record. It is not the complete legal health record.[facility]
== END 2025-04-12 09:04 | disposition home or self-care (01) ==
LOC: HO.PMC 08:15
PROVIDERS: PCP Internal Medicine; Visit Provider Nurse Practitioner Family
DX: S32.050G Wedge compression fracture of fifth lumbar vertebra, subsequent encounter for fracture with delayed healing (principal); M54.6 Pain in thoracic spine; M54.50 Low back pain, unspecified; G89.29 Other chronic pain
CPT/HCPCS: 99204

== ENCOUNTER → 2025-04-12 08:14 | Outpatient (BNVA) | payer MEDICARE, OTHER, SELFPAY | PROVIDERS: PCP Internal Medicine; Visit Provider Nurse Practitioner Family | DX: S32.050G Wedge compression fracture of fifth lumbar vertebra, subsequent encounter for fracture with delayed healing (principal); M54.6 Pain in thoracic spine; M54.50 Low back pain, unspecified; G89.29 Other chronic pain | CPT/HCPCS: 99202 ==

== ENCOUNTER 2025-04-27 11:48 | Outpatient (AMB) | payer MEDICARE, OTHER, SELFPAY ==
--- OUTSIDE RECORDS SUMMARY | 2024-11-13 05:00 | XMS_ITS ---
Author Organization [facility] Address [address] [place] [address] Care Team Providers Care Account Collector Name Role Phone DAVID ALVARADO Primary Care Provider REASON FOR VISIT PG/fall/jaw fracture, back injury Encounters Encounter Location Date Provider Diagnosis [address] [address] 11/13/2024 DAVID ALVARADO Plan Of Treatment Next Appt Details Provider Name:DAVID BUI, 08/23/2025 09:20:00 AM, [address] [place] [address], [phone], Progress Notes * MATTI ADAM ADOB:1950 (75 yo F)Acc No.[id number]:11/13/2024 Progress Notes Patient: MATTI CRUZ Provider: Yoselin GIBSON :1950 A ge:74 Y S ex:Female Date:11/13/2024 Address:[address] [place] [phone] Subjective: * Chief Complaints: * P G/fall/jaw fracture, back injury * Electronic signature of GEOVANNI ALVARADO PA-C. P on 04/27/2025 at 03:52 PM EST Sign off status: Pending * Provider: Yoselin GIBSON Date: 0 11/13/2024 Generated for Printi ng/Charlene/Gio on: 1 03:52 PM EST
--- NOTE | 2025-04-27 11:49 | A.OFFVIS_ITS ---
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 Cleaner Required: No Accompanied by: Self / Same As Patient Allergies amoxicillin Allergy (Unknown, Verified 04/27/25 11:54) Unknown aspirin Allergy (Unknown, Verified 04/27/25 11:54) Unknown ciprofloxacin (From Cipro) Allergy (Unknown, Verified 04/27/25 11:54) Unknown codeine Allergy (Unknown, Verified 04/27/25 11:54) Unknown epinephrine Allergy (Unknown, Verified 04/27/25 11:54) Unknown erythromycin base Allergy (Unknown, Verified 04/27/25 11:54) Unknown hydroxychloroquine (From Plaquenil) Allergy (Unknown, Verified 04/27/25 11:54) Unknown omeprazole (From Prilosec) Allergy (Unknown, Verified 04/27/25 11:54) Unknown Quinolones Allergy (Unknown, Verified 04/27/25 11:54) Unknown tramadol Allergy (Unknown, Verified 04/27/25 11:54) Unknown NSAIDS Allergy (Unknown, Uncoded 03/24/25 13:14) Unknown HPI Comments Details: The patient is a 75-year-old female presenting with an acute exacerbation of chronic back pain. She was last seen on April 12 to discuss a kyphoplasty procedure. On April 15, she experienced an acute worsening of her back pain after lifting an object she felt was too heavy. Due to excruciating pain, she went to [facility] on April 16. An x-ray performed there ruled out a rib fracture but a report suggested a new compression fracture at T11 and T12. This is in addition to her chronic compression fractures at T7, T9, and T11. The patient denies any recent falls. She reports the current pain is located on her left side, radiating under her arm and breast and mid back. The pain is constant, worsens with movement, leaning backwards, sitting upright and deep inspiration, and is also present when walking. She has a bone scan scheduled for the upcoming Hema. Pain Description - Onset: Acute exacerbation of pain occurred on April 15 after lifting a heavy object. - Location: The pain is on the left side of the back, radiating under the arm and breast. - Quality: Described as hurting and was excruciating at its worst. - Exacerbating Factors: Pain is worse with movement, deep breaths, walking, and bending backward. - Timing: The pain is constant, hurting even without movement. Pain Management - Affect: Patient reports feeling not so good and describes the holidays as tough. - Activities of Daily Living: Pain interferes with movement and walking. PRIOR 04/12/25: The patient is a pleasant 75 year old female presenting for an initial evaluation for mid and lower back pain. She was referred by her Automatic Mounter, Dr. Mcfarland, for potential vertebroplasty. The patient's pain began in early October of this year after she picked up a heavy object, at which time she developed severe pain in the right side of her lower back that radiated to her mid-back. She reports a subsequent injury closer to November from lifting something heavy, which she believes initiated pain on the left side. Initially, the pain was severe enough to confine her to bed. She has tried physical therapy, which provided only temporary relief. An MRI of the thoracic and lumbar spine performed on February 04, 2025, revealed multiple chronic compression fractures at T7, T9, and T11, a chronic L2 compression fracture, and an acute or subacute superior central endplate compression fracture deformity at L5. Her medical history is significant for systemic lupus erythematosus, diagnosed in 1990, for which she has been on long-term low-dose prednisone. She also has a history of osteopenia, although she has not had a bone scan this year. Past surgical history includes bunion and hammer toe surgeries in 2006. She has never had back surgery. The patient lives alone and is independent, though she did receive services when she was first injured. She does some exercises at home but has been doing less since the back pain started. Pain Description - Onset: Began in early October after lifting a heavy object. - Location: Lower right and lower left back with midline tenderness. - Radiation: Initially radiated from the right lower back to the mid-back; also reports associated anterior abdominal pain. - Quality: Described as jumping, tugging, pulling, cramping, tight, squeezing, sore, hurting, and aching. - Severity: Currently a 2-3/10 in the morning, reaches 8-9/10 with activities. - Exacerbating factors: Walking, activity, and eating. - Relieving factors: Pain is better in the morning after being in bed all night. - Associated Symptoms: Causes tiredness and exhaustion and limitations of ADLs. - Interference with function: Affects daily activities, functioning, mobility, and sleep. Pain Management - Affect: The pain causes her to have erratic sleep, as she sleeps whenever she is not in pain, which can be during the day. - Analgesia: She has tried Tylenol, which she reports has not helped much, especially for severe pain. - Current Pain: Her pain level at the time of the visit was a 2 to 3 out of 10, noting it is early in the morning. - Activities of Daily Living: The pain affects her daily activities, functioning, and mobility. - She has been exercising less since the pain began. - Aberrant Drug Related Behaviors: She endorsed not wanting to overuse Tylenol. Oswestry Low Back Pain Disability Score=18 [facility] Medical History (Updated 04/27/25 @ 12:27 by MILAGROS Morton) Lumbar compression fracture Low back pain Thoracic spine pain Surgical History Status post left foot surgery (Unknown) Social History Household Members: Spouse Alcohol intake: current Alcohol intake frequency: does not drink Patient Tobacco Use Status: Never used Tobacco Current occupational status: retired Review of Systems Narrative - Constitutional: Denies recent falls. Reports increased pain after heavy lifting. - Musculoskeletal: Reports back pain that is constant, worsens with movement and walking, and radiates to the left side under the arm and breast. - Respiratory: Reports pain with deep inspiration. Const All systems reviewed & are unremarkable except as noted in HPI and below Physical Exam Exam Exam: Vital Signs: Last Vital Signs Pulse 83 04/27/25 11:54 BP 157/78 H 04/27/25 11:54 Pulse Ox 98 04/27/25 11:54 Oxygen Delivery Method Room Air 04/27/25 11:54 BMI result Body Mass Index 25.6 General: Appears afebrile. Alert and oriented. Mood and affect appropriate. Follows and participates in conversation appropriately. Respiratory effort is unlabored. No cough. Able to transition from sit to stand unassisted. Ambulates with slow, antalgic gait, kyphotic posture. General: Yes no CVA tenderness Back/Spine/Pelvis Other: Limited lumbar ROM due to pain. Lumbar range of motion is non-painful with flexion; lumbar extension elicits moderate to severe pain. Moderate TTP in the lower thoracic and lower lumbar spine regions. Straight leg raise testing bilaterally does not provoke radicular symptoms but does cause a stretching sensation in the back. Demonstrates 5/5 strength of quadriceps bilaterally as well as flexion/dorsiflexion of bilateral feet against resistance. 2+ pedal pulses bilaterally. No groin pain with I/E hip rotations. Valsalva maneuver negative. Back: no CVA tenderness Cervical Spine: cervical ROM normal, cervical muscular tenderness, pain with cervical ROM and No Cervical spine tenderness Thoracic/Lumbar Spine: thoracic and lumbar spine normal to inspection, No Thoracic/lumbar spine scar(s), Lasegue's sign negative, straight leg raise negative bilaterally, kyphosis, pain with thoraco-lumbar ROM, thoraco-lumbar ROM limited, Thoracic/lumbar scoliosis, thoracic spinal tenderness at T10, at T11 and at T12 and lumbar spinal tenderness at L4 and at L5 Sacroiliac joints: bilaterally tender to palpation Results Reviewed Results Reviewed: MR THORACIC SPINE WITHOUT CONTRAST 02/04/25 MARY INDICATION: Back pain COMPARISON: None. TECHNIQUE: Multiplanar T1 and T2-weighted imaging of the thoracic spine. FINDINGS: The thoracic spinal cord demonstrates uniform appearing signal without evidence of intramedullary expansion and without evidence of cord compression. There is anterior wedging of the vertebral bodies of T7, T9, and T11 consistent with chronic compression fracture deformities. Throughout the thoracic spine, diffuse degenerative disc changes are present with varying degrees of disc desiccation. T1-T10: The central canal and neural foramen are patent. T10-11: Mild disc bulging is present. The central canal and neural foramen are patent. T11-L1: The central canal and neural foramen are patent. IMPRESSION: 1. Chronic compression fracture deformities 2. No high-grade canal or foraminal stenosis is identified. MR LUMBAR SPINE WITHOUT CONTRAST 02/04/25 INDICATION: Back pain COMPARISON: None. TECHNIQUE: Multiplanar T1 and T2-weighted imaging of the lumbar spine. FINDINGS: The conus is in its normal position at the level of L1. There is levoscoliosis present. There is an acute or subacute superior central endplate compression fracture deformity present of L5 with bone marrow edema. No significant retropulsion is seen of the fracture into the bony spinal canal. There is a chronic anterior superior compression fracture deformity present of L2. Schmorl's node formation is present at L1-2. Throughout the lumbar spine, diffuse degenerative disc changes are present with varying degrees of disc desiccation. T12-L1: The central canal and neural foramen are patent. L1-L2: Mild disc bulging is present. The central canal and neural foramen are patent. L2-3: Mild disc bulging is present. There is moderate narrowing present of the right neural foramen. The central canal and neural foramen are patent. L3-4: Mild disc bulging is present. Moderate facet osteoarthritic changes are present. There is epidural lipomatosis present with mild central canal stenosis. The neural foramen are patent bilaterally. L4-5: Broad-based disc bulging is present. There is moderate central canal stenosis present. There is prominence of the epidural fat. Mild facet osteoarthritic changes are present. There is moderate narrowing present of both neural foramen. L5-S1: Mild disc bulging is present. Moderate left facet osteoarthritic changes are present. There is severe left foraminal stenosis present. The central canal and right neural foramen are patent. IMPRESSION: 1. There is an acute or subacute superior central endplate compression fracture deformity present of L5. 2. Diffuse spondylotic findings as described. Assessment & Plan Assessment & Plan (1) Low back pain: Code(s): M54.50 - Low back pain, unspecified Category: Medical Qualifiers: Chronicity: chronic Back pain laterality: midline Sciatica presence: w ithout sciatica Qualified Code(s): M54.50 - Low back pain, unspecified; G89.29 - Other chronic pain (2) Lumbar compression fracture: Code(s): S32.000A - Wedge compression fracture of unspecified lumbar vertebra, initial encounter for closed fracture Category: Medical Qualifiers: Encounter type: subsequent encounter Lumbar vertebra fracture level: L5 Fracture healing: with delayed healing Qualified Code(s): S32.050G - Wedge compression fracture of fifth lumbar vertebra, subsequent encounter for fracture with delayed healing (3) Thoracic spine pain: Code(s): M54.6 - Pain in thoracic spine Category: Medical (4) Thoracic compression fracture: Code(s): S22.000A - Wedge compression fracture of unspecified thoracic vertebra, initial encounter for closed fracture Category: Medical (5) Thoracic radiculitis: Code(s): M54.14 - Radiculopathy, thoracic region Category: Medical Plan The patient's [id number] back pain is concerning for a new vertebral compression fracture, especially given the history of lifting a heavy object and the findings from an outside hospital's x-ray report suggesting new fractures at T11 and T12. The radiating pain to the left side raises concern for nerve root impingement. A stat MRI of the thoracic and lumbar spine will be ordered to assess for new fractures and potential neural element compression. The patient will also proceed with her previously scheduled bone scan on Saturday. Following the completion of the MRI and bone scan, the results will be reviewed to assess for retropulsion and acuity of fractures and finalize the plan for kyphoplasty, with potential levels including T11, T12, and lumbar area at L5 as previously planned. Expectations, risks and benefits were reviewed with patient. All questions and concerns have been answered and patient agreed with the treatment plan. Follow up for MRI results and sooner as needed. Patient was informed and verbally consented to the use of an ambient scribe for clinic note documentation during this visit. Orders: Orders 2 MR lumbar spine wo con Today G89.29 - Other chronic pain, M54.50 - Low back pain, unspecified, S32.050G - Wedge compression fracture of fifth lumbar vertebra, subsequent encounter for fracture with delayed healing MR thoracic spine wo con Today M54.14 - Radiculopathy, thoracic region, M54.6 - Pain in thoracic spine, S22.000A - Wedge compression fracture of unspecified thoracic vertebra, initial encounter for closed fracture Coding Level of Care Code Est Pt Level 4 (29167) Add On Problem Visit Only Diagnoses Chronic midline low back pain without sciatica M54.50; G89.29 Chronicity: chronic Back pain laterality: midline Sciatica presence: without sciatica Compression fracture of L5 vertebra with delayed healing, subsequent encounter S32.050G Encounter type: subsequent encounter Lumbar vertebra fracture level: L5 Fracture healing: with delayed healing Thoracic spine pain M54.6 Thoracic compression fracture S22.000A Thoracic radiculitis M54.14
[2025-04-27 11:54] VITALS: BP 157/78; BP 184/81; PULSE 83; O2SAT 98; BMI 25.6
--- OUTSIDE RECORDS SUMMARY | 2025-04-27 15:52 | XMS_ITS | Patient Health Record ---
Author Organization [facility] Address [address] [place] [address] Care Team Providers Care Hide Paster Name Role Phone ALVARADODAVID BUI Primary Care Provider MICHAEL KONG Unavailable [phone] Allergies Allergen (clinical drug ingredient) Drug/Non Drug [...] mandibular site, initial encounter (S02.609A) Referral Organization [facility] Referring Provider First Name MICHAEL Referring Provider Last Name BEBA Referring Provider Speciality Internal M edicine Referred Provider Specialty Maxillofacia l Surgery General Notes MICHAEL KONG 02:49:17 PM > patient has already called [facility] maxillofacial surgeons please send this with a copy of the ED attendance summary and this note.YOBANI Alex F CMA 11/13/2024 09:07:09 AM > [facility] ([facility]) , [address] [place] [address], , F# [phone] -*OV note, imaging report, urgent care note enclosed; *Requesting urgent appt for pt please. Thank you, Riaz [facility] 11/13/2024 09:11:03 AM > Fwd> Shoshana, if insrance referral is needed. Thank you., YOBANIShoshana P Admin 11/16/2024 07:40:00 AM > no referral required with pt's insurance plan>faxed to [phone]>encounter closed Referral Priority Urgent Referral Appointment Date 11/13/2024 Reason asses and treat for PT Diagnosis 1 Acute right-sided lo w back pain without sciatica (M54.50) Referral Organization [facility] jacinto Referring Provider First Name MICHAEL Referring Provider Last Name BEBA Referring Provider Speciality Internal edicine Referred Provider Specialty Physical [facility] General Notes MICHAEL KONG 02:51:03 PM > Home care physical therapy through [facility] if they have room what for this patient, Riaz [facility] 11/11/2024 04:28:49 PM > [facility]ach[facility] # [phone] - OV notes enclosed; *requesting vna PT services for pt please. Thank you. Referral Priority Urgent Referral Organization [facility] jacinto Referring Provider First Name MICHAEL Referring Provider Last Name BEBA Referring Provider Speciality Internal edicine Referred Organization [facility] Referred Provider Specialty Physical [facility] General Notes YOBANIShoshana P Admin 11:49:32 AM > , Haydee Hare/[phone], patient was referred by Dr. Kong and they will be starting physical therapy with patient tomorrow 11/19/2024., Shoshana [facility] P Admin 03/04/2025 09:34:35 AM > nrr>encounter closed Referral Priority Routine Referral Appointment Date 11/19/2024 Reason Patient requesting e valuation by [facility] for services Diagnosis 1 Acute right-sided lo w back pain without sciatica (M54.50) Referral Organization [facility] Referring Provider First Name MICHAEL Referring Provider Last Name BEBA Referring Provider Speciality Internal edicine Referred Provider Specialty Other Medica l [facility] General Notes DAVID ALVARADO 11/27 04:01:19 PM > patient needs PT and OT services and also needs assistance with getting around outside of the home. Patient requesting [facility] for evaluation., Antoinette [facility] NATALIE 11/29/2024 08:43:05 PM > Referral faxed to F) [phone] (P) [phone], Alicia HILTONie [place] NATALIE 12/17/2024 09:17:42 AM [...] osteoart hritis, unspecified site (M19.90) Referral Organization [facility] Referring Provider First Name DAVID Referring Provider Last Name JENNY Referring Provider Speciality Internal M edicine Referred Provider Specialty Physiatry General Notes DAVID ALVARADO 01/12 03:29:39 PM > URGENT referral to Dr. Tony Mcfarland at [address] in [place]. Patient with increased thoracic back pain and [...] MA 09:00:40 AM > (p) [phone] (f)[phone], Antoinette HILTON [place] 02/17/2025 03:55:32 PM > [...] Status Risk Notes Problem Vitamin D deficiency (34454996) Vitamin D deficiency (E55.9) Active confirmed Problem Myalgia (66688800) Myalgia (M79.1) Active confi rmed Problem Uncomplicated asthma (disorder) (457462138) Unspecified asthma, uncomplicated (J45.909) Active confirmed Problem Medication monitoring (075123302) Medication monitoring encounter (Z51.81) Active confirmed Problem Osteoporosis (98073746) Osteoporosis (M81.0) Active confirmed Problem Osteoarthritis (365336217) Unspecified osteoarthritis, unspecified site (M19.90) Active confirmed Problem Trigeminal neuralgia (81756004) Trigeminal neuralgia (G50.0) Active confirmed Problem Raynaud's disease (840556243) Raynaud's syndrome without gangrene (I73.00) Active confirmed Problem Acute maxillary sinusitis (60178409) Acute recurrent maxillary sinusitis (J01.01) Active confirmed Problem Systemic lupus erythematosus (29198314) Systemic lupus erythematosus, unspecified (M32.9) Active confirmed Problem Chilblains (98827164) Chilblains, initial encounter (T69.1XXA) Active confirmed Problem Primary osteoarthritis (732795040) Primary osteoarthritis involving multiple joints (M15.0) Active confirmed Problem Lupus erythematosus (735849203) Lupus erythematosus (L93.0) Active confirmed Problem Migraine (93775635) Migraine without status migrainosus, not intractable, unspecified migraine type (G43.909) Active confirmed Problem Osteoarthritis of knee (594320629) Primary osteoarthritis of left knee (M17.12) Active confirmed Problem Tendonitis (10819338) Tendonitis (M77.9) Active confirmed Problem Localized, primary osteoarthritis of the hand (065010957) Primary osteoarthritis of first carpometacarpal joint of right hand (M18.11) Active confirmed Problem Hyperlipidaemia (57592167) Hyperlipidemia, unspecified hyperlipidemia type (E78.5) Active confirmed Problem Acquired trigger finger (6715157) Trigger finger of left thumb (M65.312) Active confirmed Problem Tendonitis of right wrist (72747694245480900 ) Tendonitis of wrist, right (M77.8) Active confirmed Problem Pain of left hip joint (985453953715715) Pain of left hip joint (M25.552) Active confirmed Problem Pain in pelvis (37126824) Pain in pelvis (R10.2) Active confirmed Problem Asthma without status asthmaticus (24768688) Asthma, unspecified asthma severity, unspecified whether complicated, unspecified whether persistent (J45.909) Active confirmed Problem Late effect of fracture of spine AND/OR trunk without spinal cord lesion (5149478) Compression fracture of thoracic vertebra, unspecified thoracic vertebral level, sequela (S22.000S) Active confirmed Problem Age-related osteoporosis with current pathological fracture, other site, subsequent encounter for fracture with routine healing (M80.0AXD) Active confirmed Problem Frequent headache (finding) (884154946) Frequent headaches (R51.9) Active confirmed Vital Signs Blood pressure diastolic 80 mm Hg 04/01/2025 Height 61 in 04/01/2025 Blood pressure systolic 122 mm Hg 04/01/2025 Weight 145.2 lbs 04/01/2025 BMI 27.43 kg/m2 04/01/2025 Encounters Encounter Location Date Provider Diagnosis [address] [address] 08/20/2024 DAVID ALVARADO Encounter for genera l adult medical examination without abnormal findings Z00.00 ; Migraine without status migrainosus, not intractable, unspecified migraine type G43.909 ; Lupus erythematosus L93.0 ; Vitamin D deficiency E55.9 and Hyperlipidemia, unspecified hyperlipidemia type E78.[address] [address] 04/01/2025 DAVID ALVARADO Compression fracture of thoracic vertebra, unspecified thoracic vertebral level, sequela S22.000S and Mid back pain M54.[address] [address] 01/05/2025 DAVID ALVARADO Bilateral low back pain without sciatica, unspecified chronicity M54.50 and Mid back pain M54.[address] [address] 11/11/2024 MICHAEL KONG Acute right-sided lo w back pain without sciatica M54.50 ; Rib pain R07.81 and Closed fracture of left side of mandible, unspecified mandibular site, initial encounter S02.609A [address] [address] 11/10/2024 DAVID ALVARADO [address] [address] 01/21/2025 DAVID ALVARADO [facility] [address] [place] [address] 01/21/2025 DAVID ALVARADO [facility] [address] [place] [address] 01/18/2025 DAVID ALVARADO Dysuria R30.0 [facility] [address] [place] [address] 01/11/2025 DAVID ALVARADO Thoracic back pain, unspecified back pain laterality, unspecified chronicity M54.6 and Lumbar back pain M54.50 [facility] [address] [place] [address] 11/25/2024 MICHAEL KONG Acute right-sided lo w back pain without sciatica M54.50 and Closed fracture of left side of mandible, unspecified mandibular site, initial encounter S02.609A [facility] [address] [place] [address] 11/13/2024 MICHAEL KONG [facility] [address] [place] [address] 11/12/2024 DAVID ALVARADO [facility] [address] [place] [address] 09/24/2024 DAVID ALVARADO [facility] [address] [place] [address] 05/08/2024 DAVID ALVARADO [facility] [address] [place] [address] 05/08/2024 DAVID ALVARADO Trigeminal neuralgia G50.0 [facility] [address] [place] [address] 03/10/2025 DAVID ALVARADO [facility] [address] [place] [address] 01/05/2025 DAVID ALVARADO Midline thoracic dawood k pain, unspecified chronicity M54.6 [facility] [address] [place] [address] 12/29/2024 DAVID ALVARADO [facility] [address] [place] [address] 11/27/2024 DAVID ALVARADO [facility] [address] [place] [address] 11/24/2024 DAVID ALVARADO [facility] [address] [place] [address] 11/23/2024 DAVID ALVARADO [facility] [address] [place] [address] 11/18/2024 DAVID ALVARADO Assessments Encounter Date Diagnosis (ICD Code) Assessment Notes Treatment Notes Treatment Clinical Notes Section Notes 01/05/2025 Midline thoracic back pain, unspecified chronicity (ICD-10 - M54.6) 04/01/2025 Mid back pain (ICD-10 - M54.9) See compression fracture of thoracic vertebra plan. 04/01/2025 Compression fracture of thoracic vertebra, unspecified thoracic vertebral level, sequela (ICD-10 - S22.000S) Follow-up with interventional radiology as needed. By physiatry. Follow-up with physiatry afterwards as scheduled. Continue with home exercises. Continue with ice and sleep. Gentle stretching. Tylenol as discussed. Follow-up here as needed. 01/18/2025 Dysuria (ICD-10 - R30.0) 01/11/2025 Thoracic [...] PT as scheduled. Return here as needed. 11/25/2024 Acute right-sided low back pain without [...] on this through her entire trip to [place] for the last 2 weeks. She is [...] gel. Patient to follow-up if not improved. 08/20/2024 Encounter for general adult medical examination [...] monitor. 05/08/2024 Trigeminal neuralgia (ICD-10 - G50.0) 08/20/2024 Lupus erythematosus (ICD-10 - L93.0) Currently [...] official referral for urgent appointment to the [facility] maxillofacial surgeons that she has the call [...] benefit of regular aerobic exercise/healthy diet. *See [facility]/preventive medicine Health Risk Assessment reviewed with patient and scanned into chart Plan Of Treatment Pending Test Test Name Order Date XR Thoracic Spine 4 views 01/05/2025 [employer] ANTIBODIES 06/01/2015 AST ( SGOT) 01/16/2021 ALT(DO [...] DNA) 08/24/2019 Next Appt Details Provider Name:DAVID TrejoKofi BUI, 08/23/2025 09:20:00 AM, [address] [place], [address], Insurance Providers Payer Name Payer Address Payer Phone Subscriber Number Group Number Insured Name Patient Relationship to Insured Coverage Start Date Coverage End Date MEDICARE [employer] [address] [place] [address] [id number] KIAMATTI Self - patient is the insured [facility] [address] [place] [address] [phone] [id number] MATTI ADAM Self - patient is the insured 4 Medications Administered Medication Instructions Date of Administration Dosage Notes Triamcinolone Acetonide, mul ti-dose vial, 10/10/2021 40 mg Medical (General) History Medical History History ICD Code headaches lupus migraine headache osteoarthritis pneumonia fracture disc lumbar spine Covid 19, mid July 2019, Feb 2020 Allergy-Dr Sheppard Ast[facility] Dr [place] High cholesterol Eye disease osteoporosis raynaud's disease ulcers eyes trigeminal neuralgia rosacea colonoscopy 11/2021 Dr Morse repeat in 10 years. Surgical History Surgery Date(Month/Year) cataract surgery 01/2023 root canal 12/2022 hammer toes surgery- left foot 2006 oral surgery 01/08/22 bunionectomy-bilateral 1996, 2002 hemorroidectomy 2013
--- OUTSIDE RECORDS SUMMARY | 2025-04-27 15:52 | XMS_ITS | Clinical Summary ---
Author Organization [facility] Address [address] [place] [address] Care Team Providers Care School Curriculum Developer Name Role Phone Butch Veliz Primary Care Provider [phone] Immunizations Immunization Administration Dates Next Due Pfizer [...] age to complete this topic Care Teams School Curriculum Developer Relationship Specialty Start Date End Date Butch Veliz PA [address] [place] [address] PCP - General 10/01/22
--- OUTSIDE RECORDS SUMMARY | 2025-04-27 15:52 | XMS_ITS | Clinical Summary ---
Author Organization [facility] [employer] [facility] Prior to 09/26/24 Address [address] [place] [address] Care Team Providers Care Buckle Strap Puncher Name Role Phone Butch Veliz Primary Care Provider [phone] Allergies Active Allergy Reactions Criticality Noted Date [...] every morning with breakfast. 0 Active Tiotropium Olga Monohydrate (Spiriva Respimat) 2.5 MCG/ACT AERS Take [...] age to complete this topic Care Teams Buckle Strap Puncher Relationship Specialty Start Date End Date Butch Veliz PA PCP - General Physician Front Office Associate 10/01/22
--- OUTSIDE RECORDS SUMMARY | 2025-04-27 15:52 | XMS_ITS | Clinical Summary ---
Author Organization [facility] Address [address] [place] [address] Phone Care Team Providers Care Healthcare Project Manager Name Role Phone Robel Weber MD Unavailable [phone] Chidi Maciel MD Unavailable [phone] Frederick Osorio MD Unavailable [email or web address] Reynold Sanford MD Unavailable [phone] Butch Veliz Primary Care Provider [phone] Allergies Active Allergy Reactions Criticality Noted Date [...] Take 12.5 mg by mouth as needed. 3 Active famotidine (PEPCID) 10 MG tablet Take 10 mg by mouth as needed. 3 Active ipratropium (ATROVENT) 42 mcg (0.06 %) nasal spray 2 sprays by Nasal route as needed. 4 Active cholecalciferol , vitamin D3, (VITAMIN D3 ORAL) Take by mouth daily. Active predniSONE (DELTASONE) 5 MG tablet Take 2 tablets (10 mg total) by mouth daily. 180 tablet 5 Active predniSONE (DELTASONE) 5 MG tablet Take 2 tablets (10 mg total) by mouth daily. 180 tablet 5 04/13/20 25 Discontinu ed(Reorder ) Active Problems Problem Noted Date Diagnosed Date Pulmonary nodule, left 02/24/2025 Overview (02/24/2025): Patient reports follows with Dr. Vance of Pulmonology at [facility]. Evaluation 2024, with imaging. Patient felt to be stable and patient reports she was told to follow-up in a couple years. Assessment & Plan (02/24/2025 3:10 PM EDT): -- Patient follows with a Genetics Physician and patient reports no further intervention was [...] 11:59 PM EDT Hospital Encounter [facility] [address] [place] [address] Meme Velázquez DO Discharge Disposition: Home or Self Care 02/24/2025 2:00 PM EDT Office Visit [facility] Rheumatology [address] [place] [address] Meme Velázquez DO Systemic lupus erythematosus, unspecified SLE type, unspecified organ involvement status (Primary Dx); intermediate frame tender (current) use of systemic steroids; Pulmonary nodule, left 02/22/2025 Orders Only [facility] Rheumatology [address] [place] [address] Provider, MD Tamela 02/22/2025 Telephone [facility] Rheumatology [address] [place] [address] Meme Velázquez DO Fax Number? 02/05/2025 Refill [facility] Rheumatology [address] [place] [address] Meme Velázquez DO Medication Refill from Last [...] Info) Description 05/01/2025 10:15 AM EST Appointment [facility], Bone Density - [address] [address] Ana Peralta MD [address] [place] [address] 05/24/2025 10:30 AM EST Office Visit [facility] [address] [place] [address] Meme Velázquez, [address] [facility], [address] [place] [address] [email or web address] Health Maintenance Due Date Last Done Comments [...] unspecified SLE type, unspecified organ involvement status intermediate frame tender (current) use of systemic steroids CREATININE WITH ESTIMATED GLOMERULAR FILTRATION RATE (EGFR) Routine 02/24/2025 3:00 PM EDT Systemic lupus erythematosus, unspecified SLE type, unspecified organ involvement status intermediate frame tender (current) use of systemic steroids BUN Routine 02/24/2025 3:00 PM EDT Systemic lupus erythematosus, unspecified SLE type, unspecified organ involvement status shelter (current) use of systemic steroids ALANINE AMINOTRANSFERASE (ALT) Routine 02/24/2025 3:00 PM EDT Systemic lupus erythematosus, unspecified SLE type, unspecified organ involvement status intermediate frame tender (current) use of systemic steroids ASPARTATE AMINOTRANSFERASE (AST) Routine 02/24/2025 3:00 PM EDT Systemic lupus erythematosus, unspecified SLE type, unspecified organ involvement status intermediate frame tender (current) use of systemic steroids CBC AND DIFFERENTIAL Routine 02/24/2025 3:00 PM EDT Systemic lupus erythematosus, unspecified SLE type, unspecified organ involvement status shelter (current) use of systemic steroids DOUBLE STRANDED DNA ANTIBODIES Routine 02/24/2025 3:00 PM EDT Systemic lupus erythematosus, unspecified SLE type, unspecified organ involvement status intermediate frame tender (current) use of systemic steroids COMPLEMENT C3 Routine 02/24/2025 3:00 PM EDT Systemic lupus erythematosus, unspecified SLE type, unspecified organ involvement status intermediate frame tender (current) use of systemic steroids COMPLEMENT C4 Routine 02/24/2025 3:00 PM EDT Systemic lupus erythematosus, unspecified SLE type, unspecified organ involvement status shelter (current) use of systemic steroids OUTSIDE MR IMAGING REPORT ONLY Routine 02/04/2025 4:13 PM EDT from Last 3 Months Results * Creatinine/eGFR (02/24/2025 3:00 PM EDT) CREATININE 0.70 0.5 - 1.5 mg/dL [facility] EGFR 91 >59 mL/min/1.7 3m2 [facility] Comment:Estimated glomerular filtration rate calculated using the CKD-EPI refit equation. Blood 02/24/2025 3:00 PM EDT 02/24/2025 3:10 PM EDT Meme Velázquez DO LAB BLOOD BKR ORDERABLES F inal Result Performing Organization Address City/[facility]/ZIP Co de Phone Number [address] [phone] * Double stranded DNA antibodies (02/24/2025 3:00 PM EDT) ANTI DSDNA ANTIBODY Negative at 1:10 [facility] Comment: Performing Pathologist, Gabby De La Rosa M.D., Ph.D. [phone] Normal: Negative at 1:10 To interpret a negative test for anti-[place] or double stranded DNA antibodies in a [...] ORDERABLES F inal Result Performing Organization Address City/[facility]/ZIP Co de Phone Number [address] [address] * Sedimentation rate (ESR) (02/24/2025 3:00 PM EDT) ESR 13 0 - 30 mm/h [facility] Blood 02/24/2025 3:00 PM EDT 02/24/2025 3:10 PM EDT Meme Velázquez DO LAB BLOOD BKR ORDERABLES F inal Result Performing Organization Address City/[facility]/ZIP Co de Phone Number [address] [address] * (ABNORMAL) CBC and differential (02/24/2025 3:00 PM EDT) WBC 8.08 4.00 - 11.00 K/uL [facility] RBC 4.13 4.00 - 5.20 M/uL [facility] HGB 13.9 12.0 - 16.0 g/dL [facility] HCT 42.2 36.0 - 46.0 % [facility] PLT 262 150 - 450 K/uL [facility] MCV 102.2(H) 80.0 - 100.0 fL [facility] MCH 33.7(H) 27.0 - 31.0 pg [facility] MCHC 32.9 32.0 - 36.0 g/dL [facility] RDW 13.4 11.5 - 14.5 % [facility] MPV 11.6 8.4 - 12.0 fL [facility] NRBC 0.00 0.00 /100 WBCs [facility] ABSOLUTE NRBC 0.00 0.00 K/uL [facility] DIFF METHOD Auto [facility] NEUTS 88.5(H) 48.0 - 76.0 % [facility] LYMPHS 8.5(L) 18.0 - 41.0 % [facility] MONOS 2.2(L) 4.0 - 11.0 % [facility] EOS 0.0 0.0 - 5.0 % [facility] BASOS 0.2 0.0 - 1.5 % [facility] Granulocytes, immature (%) 0.6 0.0 - 0.9 % [facility] ABSOLUTE NEUTS 7.14 1.92 - 7.60 K/uL [facility] ABSOLUTE LYMPHS 0.69(L) 0.72 - 4.10 K/uL [facility] ABSOLUTE MONOS 0.18 0.16 - 1.10 K/uL [facility] ABSOLUTE EOS 0.00 0.00 - 0.50 K/uL [facility] ABSOLUTE BASOS 0.02 0.00 - 0.15 K/uL [facility] Granulocytes, immature 0.05 0.00 - 0.09 K/uL [facility] Blood 02/24/2025 3:00 PM EDT 02/24/2025 3:10 PM EDT us Meme Velázquez DO LAB BLOOD BKR ORDERABLES F inal Result [address] [address] * Complement C3 (02/24/2025 3:00 PM EDT) C3 83 81 - 157 mg/dl [facility] Blood 02/24/2025 3:00 PM EDT 02/24/2025 3:10 PM EDT us Meme Velázquez DO LAB BLOOD BKR ORDERABLES F inal Result Performing Organization Address City/[facility]/ZIP Co de Phone Number [address] [address] * Complement C4 (02/24/2025 3:00 PM EDT) C4 15 12 - 39 mg/dL [facility] Blood 02/24/2025 3:00 PM EDT 02/24/2025 3:10 PM EDT us Meme Velázquez DO LAB BLOOD BKR ORDERABLES F inal Result Performing Organization Address City/[facility]/ZIP Co de Phone Number [address] [address] * (ABNORMAL) BUN (02/24/2025 3:00 PM EDT) BUN 20(H) 6 - 19 mg/dL [facility] Blood 02/24/2025 3:00 PM EDT 02/24/2025 3:10 PM EDT us Meme Velázquez DO LAB BLOOD BKR ORDERABLES F inal Result [address] [address] * Alanine aminotransferase (ALT) (02/24/2025 3:00 PM EDT) ALT 25 0 - 40 U/L [facility] Blood 02/24/2025 3:00 PM EDT 02/24/2025 3:10 PM EDT us Meme Velázquez DO LAB BLOOD BKR ORDERABLES F inal Result [address] [address] * Aspartate aminotransferase (AST) (02/24/2025 3:00 PM EDT) AST 30 0 - 37 U/L [facility] Blood 02/24/2025 3:00 PM EDT 02/24/2025 3:10 PM EDT Meme Velázquez DO LAB BLOOD BKR ORDERABLES F inal Result Performing Organization Address [facility] Co de Phone Number [address] [address] * Outside MR Imaging Report Only (02/04/2025 4:13 PM EDT) Historical Provider IMG MR Final Res ult from Last 3 Months Insurance MEDICARE PART A & B [facility] [employer] MEDICARE SUPPLEMENT MEDICARE PART A & B [facility] MEDICARE SUPPLEMENT MEDICARE PART A & B [facility] [employer] MEDICARE SUPPLEMENT MEDICARE PART A & B [employer] MEDICARE SUPPLEMENT MEDICARE PART A & B [facility] [employer] MEDICARE SUPPLEMENT MEDICARE PART A & B [facility] [employer] MEDICARE SUPPLEMENT MEDICARE PART A & B [facility] [employer] MEDICARE SUPPLEMENT MEDICARE PART A & B [facility] [employer] MEDICARE SUPPLEMENT MEDICARE PART A & B [facility] [employer] MEDICARE SUPPLEMENT Care Teams Healthcare Project Manager Relationship Specialty Start Date End Date Butch Veliz PA [address] [place] [phone] PCP - General Physician Timber Skidder 11/14/22 Robel Weber MD [address] [place] [phone] Ophthalmology 10/02/16 Chidi Maciel MD [address] [place] [address] Ophthalmology 10/02/16 Frederick Osorio MD [address] [place] [address] Rheumatology 10/02/16 Reynold Sanford MD [address] [place] [address], [facility] [address] [place] [address] [email or web address] Historical LMR Provider 02/12/17 Additional Source Comments The information contained in this document represents components of the legal health record. It is not the complete legal health record.[facility]
== END 2025-04-27 12:07 | disposition home or self-care (01) ==
LOC: HO.PMC 11:49
PROVIDERS: Visit Provider Nurse Practitioner Family
DX: M54.50 Low back pain, unspecified (principal); G89.29 Other chronic pain; S32.050G Wedge compression fracture of fifth lumbar vertebra, subsequent encounter for fracture with delayed healing; M54.6 Pain in thoracic spine; S22.000A Wedge compression fracture of unspecified thoracic vertebra, initial encounter for closed fracture; M54.14 Radiculopathy, thoracic region
CPT/HCPCS: 99214; G2211

== ENCOUNTER → 2025-04-27 11:48 | Outpatient (BNVA) | payer MEDICARE, OTHER, SELFPAY | PROVIDERS: Visit Provider Nurse Practitioner Family | DX: M54.50 Low back pain, unspecified (principal); G89.29 Other chronic pain; M54.6 Pain in thoracic spine; M54.14 Radiculopathy, thoracic region; S32.050G Wedge compression fracture of fifth lumbar vertebra, subsequent encounter for fracture with delayed healing; S22.080A Wedge compression fracture of T11-T12 vertebra, initial encounter for closed fracture; X50.0XXA Overexertion from strenuous movement or load, initial encounter; Y93.9 Activity, unspecified; Y92.9 Unspecified place or not applicable; Y99.9 Unspecified external cause status | CPT/HCPCS: 99212 ==